=== PATIENT | female | born 1945 | race Caucasian/White ===

== ENCOUNTER 2020-07-17 14:20 | Outpatient (REF) | payer MEDICARE, SELFPAY ==
--- NOTE | 2020-07-17 | MM_ITS ---
EXAMINATION: MM SCREENING DIGITAL BREAST TOMOSYNTHESIS, BILATERAL CLINICAL INFORMATION: Screening. Asymptomatic. The lifetime risk of breast cancer based on the Tyrer-Cuzick Model is 3%. COMPARISON: Mammography: 07/09/2019, 05/15/2018, 03/17/2017, 03/15/2016 TECHNIQUE: Digital breast tomosynthesis is performed in both the craniocaudal and mediolateral oblique views along with computer-aided detection (CAD). Synthesized 2D images are generated from the tomosynthesis. FINDINGS: There are scattered areas of fibroglandular density (ACR BI-RADS breast composition Category b). Breast tissue composition borders on heterogeneously dense in the anterior breasts. Again, there is fine fibronodular parenchymal pattern similar to prior exams. There is no developing density or interval mass or architectural abnormality. There is there are no abnormal calcifications. The axilla and skin contours are unremarkable. IMPRESSION: No significant changes from prior studies. ASSESSMENT: BI-RADS 2: Benign RECOMMENDATION: Routine annual mammography screening. This patient's information was entered into a reminder system with a target due date for their next mammogram.
== END 2020-07-17 14:21 | disposition home or self-care (01) ==
LOC: HO.MAMMO 14:20
PROVIDERS: Visit Provider Internal Medicine
DX: Z12.31 Encounter for screening mammogram for malignant neoplasm of breast (principal)
CPT/HCPCS: 77063; 77067; 78014

== ENCOUNTER 2020-07-19 10:18 | Outpatient (REF) | payer MEDICARE, SELFPAY ==
[2020-07-19 12:02] LABS: Alanine Aminotransferase 25 U/L (0-31); Albumin Level 4.4 g/dL (3.5-5.0); Alkaline Phosphatase 88 U/L (39-117); Anion Gap 13 (12-20); Aspartate Amino Transferase 26 U/L (5-31); Bilirubin Total 1.4 mg/dL (0.0-1.0); Blood Urea Nitrogen 16 mg/dL (9-16); Calcium 9.3 mg/dL (8.4-10.2); Carbon Dioxide 27 mmol/L (22-29); Chloride 103 mmol/L (96-108); Estimated Glomerular Filt Rate > 60; Glucose Fasting 117 mg/dL (60-99); Sodium 139 mmol/L (135-145); Total Protein 7.3 g/dL (6.5-8.0)
[2020-07-19 12:24] LABS: Estimated Average Glucose 146 mg/dL; Hemoglobin A1C 161.9097 umol/L; Hemoglobin A1c % 6.7 %
[2020-07-19 12:34] LABS: Creatinine Urine 195.12 mg/dL
== END 2020-07-19 10:19 | disposition home or self-care (01) ==
LOC: HO.LAB 10:18
PROVIDERS: PCP Internal Medicine; Visit Provider Internal Medicine
DX: E11.9 Type 2 diabetes mellitus without complications (principal); E03.9 Hypothyroidism, unspecified; E78.2 Mixed hyperlipidemia
CPT/HCPCS: 80053; 82043; 83036

== ENCOUNTER 2020-12-11 07:49 | Outpatient (REF) | payer MEDICARE, SELFPAY ==
[2020-12-11 08:07] LABS: COVID-19 Test Negative (Negative)
== END 2020-12-11 07:50 | disposition home or self-care (01) ==
LOC: HO.LAB 07:49
PROVIDERS: Visit Provider Internal Medicine
DX: Z20.822 Contact with and (suspected) exposure to COVID-19 (principal)
CPT/HCPCS: 36415; 87635; C9803

== ENCOUNTER 2021-03-30 09:40 | Outpatient (REF) | payer MEDICARE, SELFPAY ==
[2021-03-30 11:56] LABS: Alanine Aminotransferase 20 U/L (0-31); Albumin Level 4.4 g/dL (3.5-5.0); Alkaline Phosphatase 88 U/L (39-117); Anion Gap 17 (12-20); Aspartate Amino Transferase 23 U/L (5-31); Blood Urea Nitrogen 13 mg/dL (9-16); Calcium 9.1 mg/dL (8.4-10.2); Carbon Dioxide 24 mmol/L (22-29); Chloride 104 mmol/L (96-108); Cholesterol 151 mg/dL; Estimated Glomerular Filt Rate > 60; Glucose Fasting 140 mg/dL (60-99); HDL Cholesterol 73 mg/dL; LDL Cholesterol Calculated 64 mg/dl; Sodium 141 mmol/L (135-145); Total Protein 7.3 g/dL (6.5-8.0); Triglycerides 74 mg/dL
[2021-03-30 11:58] LABS: Creatinine Urine 138.81 mg/dL; Microalbum/Creatinine Ratio Ur 29.5 ug/mg cr
[2021-03-30 12:01] LABS: Estimated Average Glucose 160 mg/dL; Hemoglobin A1c % 7.2 %
[2021-03-30 12:04] LABS: Thyroid Stimulating Hormone 1.67 uIU/mL (0.32-4.0)
== END 2021-03-30 09:41 | disposition home or self-care (01) ==
LOC: HO.HMGCLDS 09:40
PROVIDERS: PCP Internal Medicine; Visit Provider Internal Medicine
DX: E03.9 Hypothyroidism, unspecified (principal); E11.9 Type 2 diabetes mellitus without complications; E78.5 Hyperlipidemia, unspecified; M85.80 Other specified disorders of bone density and structure, unspecified site
CPT/HCPCS: 36415; 80053; 80061; 82043; 83036; 84443

== ENCOUNTER 2021-07-06 10:54 | Outpatient (REF) | payer MEDICARE, SELFPAY ==
[2021-07-06 14:11] LABS: Estimated Average Glucose 140 mg/dL; Hemoglobin A1c % 6.5 %
[2021-07-06 14:25] LABS: Alanine Aminotransferase 13 U/L (0-31); Albumin Level 4.5 g/dL (3.5-5.0); Alkaline Phosphatase 89 U/L (39-117); Anion Gap 14 (12-20); Aspartate Amino Transferase 19 U/L (5-31); Bilirubin Total 0.9 mg/dL (0.0-1.0); Blood Urea Nitrogen 13 mg/dL (9-16); Calcium 9.4 mg/dL (8.4-10.2); Carbon Dioxide 26 mmol/L (22-29); Chloride 104 mmol/L (96-108); Estimated Glomerular Filt Rate > 60; Glucose Fasting 127 mg/dL (60-99); Potassium 4.3 mmol/L (3.3-5.1); Sodium 140 mmol/L (135-145); Total Protein 7.6 g/dL (6.5-8.0)
== END 2021-07-06 10:55 | disposition home or self-care (01) ==
LOC: HO.HMGCLDS 10:54
PROVIDERS: PCP Internal Medicine; Visit Provider Internal Medicine
DX: E11.9 Type 2 diabetes mellitus without complications (principal); E78.5 Hyperlipidemia, unspecified
CPT/HCPCS: 36415; 80053; 83036

== ENCOUNTER 2021-09-13 19:37 | Emergency (ER) | payer MEDICARE, SELFPAY ==
--- NOTE | ~2021-09-13 | XR_ITS ---
EXAMINATION: XR CHEST CLINICAL INFORMATION: Covid, cough. COMPARISON: No similar priors. TECHNIQUE: PA view of the chest was obtained. FINDINGS: No significant abnormality is noted involving the heart, lungs, mediastinum, bony thorax or soft tissues. XR/XR chest 1V IMPRESSION: Unremarkable examination.
[2021-09-13 19:46] VITALS: BP 127/57; PULSE 77; RESP 18; TEMP 37.1; O2SAT 98; BMI 22.4
[2021-09-13 20:15] LABS: COVID-19 Test Positive (Negative); IDNOW Serial# 9DD0AD1C
--- NOTE | 2021-09-13 21:48 | ED_ITS ---
HPI - General Adult General Chief complaint: Upper Respiratory Symptoms Stated complaint: cough home test positive for covid Time Seen by Provider: 09/13/21 21:04 Source: patient Mode of arrival: ambulatory Limitations: no limitations History of Present Illness HPI narrative: Patient comes to emergency room complaining of cough for 5 days. Initially, she thought that she had influenza test/cold as well as her . Patient denies fever, no chills, complaining cough but no other symptoms. Denies chest pain, no shortness of breath. Related Data Home Medications Medication Instructions Recorded Confirmed blood-glucose meter #1 ea 08/01/20 07/11/21 Previous Rx's Medication Instructions Recorded blood sugar diagnostic #100 ea 11/23/20 lancets 33 gauge (BD Ultra Fine #100 ea 12/29/20 Lancets) metformin 500 mg tablet 500 mg PO DAILY #90 tab 04/03/21 levothyroxine 100 mcg tablet 100 mcg PO DAILY #90 tab 06/11/21 atorvastatin 20 mg tablet 20 mg PO DAILY 90 Days #90 tab 07/11/21 Allergies Allergy/AdvReac Type Severity Reaction Status Date / Time No Known Allergies Allergy Verified 07/11/21 08:56 Review of Systems Review of Systems: Constitutional : No Weight loss, No Fever, No Chills, No Night Sweats, No Fatigue, No Malaise ENT/Mouth : No Hearing loss, No Ear Pain, No Nasal Congestion, No Sinus Pain, No Hoarseness, No sore throat, No Rhinorrhea, No Swallowing Difficulty Eyes: No Eye Pain, No Swelling, No Redness, No Foreign Body, No Discharge, No Vision Changes Cardiovascular : No Chest Pain, No SOB, No Dyspnea on Exertion, No Orthopnea, No Edema, No Palpitations Respiratory : Complaining of Cough, No Sputum, No Wheezing, No Smoke Exposure, No Dyspnea Gastrointestinal : No Nausea, No Vomiting, No Diarrhea, No Constipation, No abdominal Pain, No Hematochezia, No Melena Genitourinary : no irregular bleeding, No Dysuria, No Urinary Frequency, No Hematuria, No Urinary Incontinence, No Urgency, No Flank Pain, No Urinary Flow Changes, No Hesitancy Musculoskeletal : No joint pain, No Myalgias, No Joint Swelling Skin : No Skin Lesions, No rash Neuro : No Weakness, No Numbness, No Paresthesias, No Loss of Consciousness, No Dizziness, No Headache Psych : No Anxiety/Panic, No Depression, No SI/HI/AH/VH, No Social Issues, Heme/Lymph: No Bruising, No Bleeding,No Lymphadenopathy Endocrine : No Polyuria, No Polydipsia, No Temperature Intolerance [facility] Past Medical History Medical History Diabetes Diabetic eye exam FH: celiac disease Hyperlipidemia Hypothyroidism Mammogram normal Osteopenia Surgical History History of colonoscopy History of plastic surgery Family History Family History Father Pancreatic cancer Mother Celiac disease COPD (chronic obstructive pulmonary disease) Brother No problems noted. Brother Celiac disease Social History Social History Housing: House Patient Tobacco Use Status: Never used Tobacco e-Cigarette/Vaping Use: Never Used Second Hand Smoke Exposure: No Advance Directives: No Advance Directives Information Provided: Yes service: No Current occupational status: retired Physical Exam Vital Signs: Vital Signs: Last Vital Signs Temp 98.8 F 09/13/21 19:46 Pulse 77 09/13/21 19:46 Resp 18 09/13/21 19:46 BP 127/57 L 09/13/21 19:46 Pulse Ox 98 09/13/21 19:46 BMI result Body Mass Index 22.4 Const: Other: Appearance: Alert. Oriented X3. No acute distress. Well- appearing Eyes: Pupils equal, round and reactive to light. ENT: Pharynx normal. Neck: Normal inspection. Neck supple. No lymph nodes noted. No crepitus CVS: Normal heart rate and rhythm. Pulses normal. Normal S1 and S2 Respiratory: No respiratory distress. Breath sounds normal. No Wheezing. No rales Abdomen: Soft and nontender. No rigidity. No distention. Skin: Skin warm and dry. Normal skin color. Normal skin turgor. Extremities: No lower extremity edema. No lower extremity edema. No Lacerations. No Rash Neuro: Oriented X 3. No motor deficit. No sensory deficit. Moving all extermities. No slurred speech. Course Course Course Narrative: Patient tested positive for COVID-19. Given the patient's age and medical history, patient will likely benefit from COVID-19 monoclonal antibody infusion. Patient agreed to be referred for infusion treatment in [place]. Medical Decision Making Lab Data Labs: Lab Results 09/13/21 Range/Units 20:00 COVID-19 (DENIS) Positive A (Negative) COVID-19 Clin Com See Note Imaging Data Chest x-ray: Radiologist's impression: FINDINGS: No significant abnormality is noted involving the heart, lungs, mediastinum, bony thorax or soft tissues. XR/XR chest 1V IMPRESSION: Unremarkable examination. Discharge Plan Discharge Clinical Impression: COVID-19 Patient Disposition: Home, Self-Care Instructions: COVID-19 (Coronavirus Disease 2019) (ED) Additional Instructions: He has been referred to the COVID-19 monoclonal antibody infusion center in [place]. Please follow-up with your primary care physician tomorrow. If you have any worsening or new symptoms, please return to the emergency room or call 911 Prescriptions: No Action (DME) blood sugar diagnostic Strip See Rx Instructions ea Not Applicable DAILY Qty: 100 RF: 1 (DME) lancets [BD Ultra Fine Lancets] 33 gauge misc See Rx Instructions .ROUTE .MEDSUPPLY Qty: 100 RF: 0 levothyroxine 100 mcg tablet 100 mcg PO DAILY Qty: 90 RF: 3 (DME) blood-glucose meter Kit See Rx Instructions ea .ROUTE DAILY Qty: 1 RF: 0 metformin 500 mg tablet 500 mg PO DAILY Qty: 90 RF: 3 atorvastatin 20 mg tablet 20 mg PO DAILY 90 Days Qty: 90 RF: 3
== END 2021-09-13 22:20 | disposition home or self-care (01) ==
PROVIDERS: Emergency Provider Emergency Medicine
DX: U07.1 COVID-19 (principal)
CPT/HCPCS: 36415; 71045; 87635; 99283; 99284

== ENCOUNTER 2022-01-16 09:18 | Outpatient (REF) | payer MEDICARE, SELFPAY ==
--- NOTE | ~2022-01-16 | MM_ITS ---
EXAMINATION: MM SCREENING DIGITAL BREAST TOMOSYNTHESIS, BILATERAL CLINICAL INFORMATION: Screening. Asymptomatic. The lifetime risk of breast cancer based on the Tyrer-Cuzick Model is under 2%. COMPARISON: Mammography: 07/17/2020, 07/09/2019, 05/15/2018 TECHNIQUE: Digital breast tomosynthesis is performed in both the craniocaudal and mediolateral oblique views along with computer-aided detection (CAD). Synthesized 2D images are generated from the tomosynthesis. FINDINGS: There are scattered areas of fibroglandular density (ACR BI-RADS breast composition Category b). There are no significant masses, abnormal calcifications, or other abnormalities. Fibronodular parenchymal pattern is similar to prior studies. There is no developing density or architectural abnormality. Left axillary node stable. No significant changes. MM/MM tomosynthesis screening BI IMPRESSION: No significant changes from prior studies. ASSESSMENT: BI-RADS 2: Benign RECOMMENDATION: Routine annual mammography screening. This patient's information was entered into a reminder system with a target due date for their next mammogram.
== END 2022-01-16 09:19 | disposition home or self-care (01) ==
LOC: HO.MAMMO 09:18
PROVIDERS: PCP Internal Medicine; Visit Provider Internal Medicine
DX: Z12.31 Encounter for screening mammogram for malignant neoplasm of breast (principal)
CPT/HCPCS: 77063; 77067

== ENCOUNTER 2022-01-25 09:13 | Outpatient (REF) | payer MEDICARE, SELFPAY ==
[2022-01-25 10:25] LABS: Estimated Average Glucose 148 mg/dL; Hemoglobin A1c % 6.8 %
[2022-01-25 10:47] LABS: Alanine Aminotransferase 14 U/L (0-31); Albumin Level 4.1 g/dL (3.5-5.0); Alkaline Phosphatase 82 U/L (39-117); Anion Gap 13 (12-20); Aspartate Amino Transferase 21 U/L (5-31); Blood Urea Nitrogen 11 mg/dL (9-16); Calcium 9.5 mg/dL (8.4-10.2); Carbon Dioxide 28 mmol/L (22-29); Chloride 101 mmol/L (96-108); Cholesterol 163 mg/dL; Estimated Glomerular Filt Rate > 60; Glucose Fasting 132 mg/dL (60-99); HDL Cholesterol 68 mg/dL; LDL Cholesterol Calculated 80 mg/dl; Potassium 4.2 mmol/L (3.3-5.1); Sodium 138 mmol/L (135-145); Total Protein 7.2 g/dL (6.5-8.0); Triglycerides 75 mg/dL
[2022-01-25 11:09] LABS: TSH reflex Free T4 2.69 uIU/mL (0.32-4.0)
== END 2022-01-25 09:14 | disposition home or self-care (01) ==
LOC: HO.LAB 09:13
PROVIDERS: PCP Internal Medicine; Visit Provider Internal Medicine
DX: E03.9 Hypothyroidism, unspecified (principal); E78.5 Hyperlipidemia, unspecified; E11.9 Type 2 diabetes mellitus without complications
CPT/HCPCS: 36415; 80053; 80061; 83036; 84443

== ENCOUNTER 2022-07-22 09:33 | Outpatient (REF) | payer MEDICARE, SELFPAY ==
[2022-07-22 10:29] LABS: Alanine Aminotransferase 13 U/L (0-31); Albumin Level 4.5 g/dL (3.5-5.0); Alkaline Phosphatase 88 U/L (39-117); Anion Gap 16 (12-20); Aspartate Amino Transferase 21 U/L (5-31); Bilirubin Total 1.3 mg/dL (0.0-1.0); Blood Urea Nitrogen 12 mg/dL (9-16); Calcium 9.6 mg/dL (8.4-10.2); Carbon Dioxide 27 mmol/L (22-29); Chloride 103 mmol/L (96-108); Cholesterol 147 mg/dL; Estimated Glomerular Filt Rate > 60; Glucose Fasting 133 mg/dL (60-99); HDL Cholesterol 71 mg/dL; LDL Cholesterol Calculated 65 mg/dl; Potassium 4.3 mmol/L (3.3-5.1); Sodium 142 mmol/L (135-145); Total Protein 7.5 g/dL (6.5-8.0); Triglycerides 59 mg/dL
[2022-07-22 10:31] LABS: Estimated Average Glucose 146 mg/dL; Hemoglobin A1c % 6.7 %
[2022-07-22 11:00] LABS: Creatinine Urine 256.74 mg/dL; Microalbum/Creatinine Ratio Ur 9.7 ug/mg cr
== END 2022-07-22 09:34 | disposition home or self-care (01) ==
LOC: HO.LAB 09:33
PROVIDERS: PCP Internal Medicine; Visit Provider Internal Medicine
DX: E11.9 Type 2 diabetes mellitus without complications (principal); E78.5 Hyperlipidemia, unspecified
CPT/HCPCS: 36415; 80053; 80061; 82043; 83036

== ENCOUNTER 2023-01-17 09:38 | Outpatient (REF) | payer MEDICARE, SELFPAY ==
--- NOTE | ~2023-01-17 | MM_ITS ---
EXAMINATION: MM SCREENING DIGITAL BREAST TOMOSYNTHESIS, BILATERAL CLINICAL INFORMATION: Screening. Asymptomatic. The lifetime risk of breast cancer based on the Tyrer-Cuzick Model is 2%. COMPARISON: Mammography 01/16/2022, 07/17/2020, 07/09/2019; targeted left axillary 07/13/2019. TECHNIQUE: Digital breast tomosynthesis is performed in both the craniocaudal and mediolateral oblique views along with computer-aided detection (CAD). Synthesized 2D images are generated from the tomosynthesis. FINDINGS: There are scattered areas of fibroglandular density (ACR BI-RADS breast composition Category b). There is fine fibronodular parenchymal pattern similar to prior exams. No developing density or architectural abnormality. No abnormal calcifications. No significant mass. The skin contours are smooth. There is chronic mildly prominent left axillary node, similar to prior exams. MM/MM tomosynthesis screening BI IMPRESSION: No significant changes from prior studies. ASSESSMENT: BI-RADS 2: Benign RECOMMENDATION: Routine annual mammography screening. This patient's information was entered into a reminder system with a target due date for their next mammogram.
--- NOTE | ~2023-01-17 | MM_ITS ---
EXAMINATION: BONE DENSITOMETRY CLINICAL INDICATION: Asymptomatic menopausal state. COMPARISON: Previous BD dated 07/09/2019 and baseline BD dated 10/26/2007. TECHNIQUE: Using a Continuent DXA System (software version: 13.1) manufactured by [employer], dual-energy x-ray absorptiometry was performed of the lumbar spine and left hip. The images are of good technical quality. Summary results are attached. FINDINGS: AP SPINE L1-L4: Current: BMD 0.978 g/cm2, Z-score 0.5, T-score -1.7, osteopenia, 3.9% decrease from previous, 2.8% increase from baseline (<5% change is not significant). Prior: BMD 1.018 g/cm2. Baseline: BMD 0.951 g/cm2. LEFT FEMUR, NECK: Current: BMD 0.735 g/cm2, Z-score 0.2, T-score -2.2, osteopenia. Prior: BMD 0.742 g/cm2. Baseline: BMD 0.841 g/cm2. LEFT FEMUR, TOTAL: Current: BMD 0.832 g/cm2, Z-score 0.9, T-score -1.4, osteopenia, 10.5% increase from previous, 6.7% decrease from baseline (<5% change is not significant). Prior: BMD 0.753 g/cm2. Baseline: BMD 0.892 g/cm2. IDENTIFIED RISK FACTORS: Menopause, secondary osteoporosis. HISTORY OF FRACTURE: None listed. MEDICATIONS: Vitamin D. MM/XR DEXA axial skeleton IMPRESSION: 1. DIAGNOSIS: Osteopenia based on the lowest T-score value of -2.2 in the femoral neck applying World Health Organization criteria. 2. 10-YEAR FRACTURE RISK PREDICTION, FRAX: Major osteoporotic fracture (clinical spine, forearm, hip or shoulder) 15.8%. Hip fracture 5.1%. 3. Treatment Recommendations: NOF guidelines recommend consideration for treatment in postmenopausal women and men age 50 and older presenting with the following: -A hip or vertebral (clinical or morphometric) fracture. -T-score less than or equal to -2.5 at the femoral neck or spine after appropriate evaluation to exclude secondary causes. -Low bone mass at the hip or spine and a 10-year fracture probability by FRAX of greater than or equal to 3% for hip fracture or greater than or equal to 20% for major osteoporotic fracture based on the [place] adapted WHO algorithm. 4. Other Recommendations: All treatment decisions require clinical judgment and consideration of individual patient factors, including patient preferences, comorbidities, previous drug use, risk factors not captured in the FRAX model (e.g. frailty, falls, vitamin D deficiency, increased bone turnover, interval significant decline in bone density) and possible under or overestimation of fracture risk by FRAX. Additional medical evaluation for secondary cause of low bone mineral density may be appropriate. FUTURE SCAN RECOMMENDATION: People with diagnosed cases of osteoporosis or at high risk for fracture should have regular bone mineral density tests. For patients eligible for Medicare, routine testing is allowed once every 2 years. The testing frequency can be increased to one year for patients who have rapidly progressing disease, those who are receiving or discontinuing medical therapy to restore bone mass, or have additional risk factors.
[2023-01-17 10:41] LABS: MANUAL DIFF FLAG NO
[2023-01-17 11:08] LABS: Basophils Absolute Auto 0.1 X10*3/uL (0.0-0.2); Basophils Percent Auto 0.7 % (0-2); Eosinophils Absolute Auto 0.2 X10*3/uL (0.0-0.4); Eosinophils Percent Auto 2.8 % (0-4); Hemoglobin 12.7 g/dl (12.0-16.0); Imm Gran Abs Auto 0.03 X10*3/uL (0.00-0.03); Imm Gran Pct Auto 0.4 % (0.0-0.4); Lymphocytes Absolute Auto 1.9 X10*3/uL (1.2-4.9); Lymphocytes Percent Auto 25.9 % (20-40); Mean Corpuscular HGB Conc 32.6 g/dl (31.0-35.0); Mean Corpuscular Hemoglobin 29.7 pg (27.0-33.0); Mean Corpuscular Volume 91.1 fL (80.0-98.0); Mean Platelet Volume 9.5 fL (9.4-12.3); Monocytes Absolute Auto 0.6 X10*3/uL (0.1-1.2); Monocytes Percent Auto 8.5 % (2-11); Neutrophils Absolute Auto 4.4 x10*3/uL (2.0-8.3); Neutrophils Percent Auto 61.7 % (45-73); Platelet Count 326 X10*3/uL (160-400); Red Blood Count 4.28 X10*6/uL (4.20-5.50); Red Cell Distribution Width 13.2 % (11.0-16.0); White Blood Count 7.2 X10*3/uL (4.8-10.8)
[2023-01-17 11:15] LABS: Estimated Average Glucose 151 mg/dL; Hemoglobin A1c % 6.9 %
[2023-01-17 11:41] LABS: Alanine Aminotransferase 11 U/L (0-31); Albumin Level 4.4 g/dL (3.5-5.0); Alkaline Phosphatase 120 U/L (39-117); Anion Gap 14 (12-20); Aspartate Amino Transferase 18 U/L (5-31); Bilirubin Total 1.3 mg/dL (0.0-1.0); Blood Urea Nitrogen 14 mg/dL (9-16); Calcium 9.5 mg/dL (8.4-10.2); Carbon Dioxide 28 mmol/L (22-29); Chloride 103 mmol/L (96-108); Cholesterol 171 mg/dL; Estimated Glomerular Filt Rate > 60; Glucose Fasting 142 mg/dL (60-99); HDL Cholesterol 65 mg/dL; Iron 77 mcg/dL (30-160); LDL Cholesterol Calculated 90 mg/dl; Percent Iron Saturation 30 % (15-50); Potassium 4.4 mmol/L (3.3-5.1); Sodium 141 mmol/L (135-145); Total Iron Binding Capacity 257 mcg/dL (228-428); Total Protein 7.6 g/dL (6.5-8.0); Triglycerides 80 mg/dL; Unsaturated Iron Binding 180 ug/dL
[2023-01-17 12:09] LABS: Folate 12.6 ng/mL (> or = 4.0); TSH reflex Free T4 4.42 uIU/mL (0.32-4.0); Vitamin B12 400 pg/mL (200-900); Vitamin D 25-OH Total 50.7 ng/mL (>30)
[2023-01-17 13:12] LABS: Free T4 (Free Thyroxine) 1.06 ng/dL (0.71-1.85)
== END 2023-01-17 09:39 | disposition home or self-care (01) ==
LOC: HO.MAMMO 09:38
PROVIDERS: PCP Internal Medicine; Visit Provider Internal Medicine
DX: Z12.31 Encounter for screening mammogram for malignant neoplasm of breast (principal); Z13.820 Encounter for screening for osteoporosis; Z78.0 Asymptomatic menopausal state; M85.80 Other specified disorders of bone density and structure, unspecified site; E03.9 Hypothyroidism, unspecified; E11.9 Type 2 diabetes mellitus without complications; E55.9 Vitamin D deficiency, unspecified; E78.5 Hyperlipidemia, unspecified
CPT/HCPCS: 36415; 77063; 77067; 77080; 80053; 80061; 82306; 82607; 82746; 83036; 83540; 84439; 84443; 85025

== ENCOUNTER 2023-06-03 08:43 | Outpatient (REF) | payer MEDICARE, SELFPAY ==
[2023-06-03 09:14] LABS: MANUAL DIFF FLAG NO
[2023-06-03 10:08] LABS: Basophils Absolute Auto 0.1 X10*3/uL (0.0-0.2); Basophils Percent Auto 0.8 % (0-2); Eosinophils Absolute Auto 0.2 X10*3/uL (0.0-0.4); Eosinophils Percent Auto 3.8 % (0-4); Hematocrit 38.2 % (37.0-47.0); Hemoglobin 12.1 g/dl (12.0-16.0); Imm Gran Abs Auto 0.01 X10*3/uL (0.00-0.03); Imm Gran Pct Auto 0.2 % (0.0-0.4); Lymphocytes Absolute Auto 1.6 X10*3/uL (1.2-4.9); Lymphocytes Percent Auto 25.3 % (20-40); Mean Corpuscular HGB Conc 31.7 g/dl (31.0-35.0); Mean Corpuscular Hemoglobin 28.5 pg (27.0-33.0); Mean Corpuscular Volume 89.9 fL (80.0-98.0); Mean Platelet Volume 9.7 fL (9.4-12.3); Monocytes Absolute Auto 0.5 X10*3/uL (0.1-1.2); Monocytes Percent Auto 8.6 % (2-11); Neutrophils Absolute Auto 3.8 x10*3/uL (2.0-8.3); Neutrophils Percent Auto 61.3 % (45-73); Platelet Count 301 X10*3/uL (160-400); Red Blood Count 4.25 X10*6/uL (4.20-5.50); Red Cell Distribution Width 13.6 % (11.0-16.0); White Blood Count 6.1 X10*3/uL (4.8-10.8)
[2023-06-03 10:15] LABS: Estimated Average Glucose 146 mg/dL; Hemoglobin A1c % 6.7 % (<6.0)
[2023-06-03 10:45] LABS: Alanine Aminotransferase 11 U/L (0-31); Albumin Level 4.2 g/dL (3.5-5.0); Alkaline Phosphatase 88 U/L (39-117); Anion Gap 12 (12-20); Aspartate Amino Transferase 16 U/L (5-31); Bilirubin Total 0.9 mg/dL (0.0-1.0); Blood Urea Nitrogen 15 mg/dL (9-16); Calcium 9.6 mg/dL (8.4-10.2); Carbon Dioxide 27 mmol/L (22-29); Chloride 104 mmol/L (96-108); Estimated Glomerular Filt Rate > 60; Glucose Fasting 144 mg/dL (60-99); Potassium 4.2 mmol/L (3.3-5.1); Sodium 139 mmol/L (135-145); Total Protein 7.9 g/dL (6.5-8.0)
[2023-06-03 11:00] LABS: TSH reflex Free T4 2.62 uIU/mL (0.32-4.0)
== END 2023-06-03 08:44 | disposition home or self-care (01) ==
LOC: HO.LAB 08:43
PROVIDERS: PCP Internal Medicine; Visit Provider Internal Medicine
DX: E03.9 Hypothyroidism, unspecified (principal); E11.9 Type 2 diabetes mellitus without complications; E78.5 Hyperlipidemia, unspecified
CPT/HCPCS: 36415; 80053; 83036; 84443; 85025

== ENCOUNTER 2023-06-06 09:40 | Outpatient (AMB) | payer MEDICARE, SELFPAY ==
[2023-06-06 09:51] VITALS: BP 120/64; PULSE 77; O2SAT 98; BMI 19.6
--- NOTE | 2023-06-06 09:51 | A.OFFVIS_ITS ---
Intake Vital Signs 06/06/23 09:51 Height 5 ft 5 in Weight 118 lb BMI 19.6 BP 120/64 Blood Pressure Location Lt brachial Position Sitting Pulse 77 Pulse Source Pulse Oximeter Pulse Oximetry (%) 98 Oxygen Delivery Method Room Air Intake Visit Reasons: LAWANDA [id number] 05/13/2012 Intake Note: Pt is here today for AWV. Allergies No Known Allergies Allergy (Verified 06/06/23 09:53) Medication List - Last Reconciled 06/06/23 by Claudia Earl MD atorvastatin 20 mg PO DAILY 90 days blood sugar diagnostic use 1 strip once a day to test blood sugar blood-glucose meter As directed lancets (BD Ultra Fine Lancets) QD levothyroxine 100 mcg PO DAILY metformin 500 mg PO DAILY HPI HPI Comments History of Present Illness Details Patient is for annualInitiated the conversation about Advanced Directives. Advanced Directives help? patients prepare for current and future decisions about their medical treatment? and place of care. Discussed with patient that it is a process where a patients? current condition and prognosis are reviewed, their wishes for information? regarding their illness are elicited, and likely medical dilemmas are presented? and options discussed. The form can be amended as needed, reviewed yearly and? make changes as needed IPPE/AWV ? year old presents? for her ? Annual? Wellness Visit, initial visit.? Medical / Social History Reviewed? Past Medical History ?Yes? . ? [place]? of Care / Care Team list updated ?Yes . ? Surgical/Hospitalization? History ?Yes . ? Current Medications? (including OTC and supplements) ?Yes . ? Family History ?Yes? . ? Tobacco? Control form ?Yes . ? AUDIT-C (Alcohol use) form? ?Yes . ? Illicit drug use in Social? History ?Yes . ? Current diagnosis of? depression? ?No ? Appropriate PHQ2/PHQ9? completed ?Yes . ? Data entered by ?[facility] and reviewed by provider ? Fall Risk ? Fall? History? Have you had any falls with? injury in the past year? ?No . ? Have you had two or more? falls in the past year? ?No . ? Fall Risk Assessment: ?No? falls in the past year . ? HRA filled out by? the patient, reviewed by Provider and scanned. ? IPPE/AWV ? Balance? Romberg? ?Yes . ? Tandem? walk ?Yes . ? Walk and? Turn ?Yes . ? Rise from? sit to stand ?Yes . ?Vision? Corrective? lens ?Yes ? Vision? screen ? Up-to-date, has an appointment [] for vision? screening and glaucoma screening ?Hearing? Whisper? test ?pass .? Initiated the conversation about Advanced Directives. Advanced Directives help? patients prepare for current and future decisions about their medical treatment? and place of care. Discussed with patient that it is a process where a patients? current condition and prognosis are reviewed, their wishes for information? regarding their illness are elicited, and likely medical dilemmas are presented? and options discussed. The form can be amended as needed, reviewed yearly and? make changes as needed Written? Plan?Completed. See Patient? Documents. visit [facility] Medical History (Updated 06/06/23 @ 10:14 by Claudia Earl MD) Diabetes Diabetic eye exam FH: celiac disease Hyperlipidemia Hypothyroidism Mammogram normal Osteopenia Skin growth Surgical History History of colonoscopy History of plastic surgery Family History Father Pancreatic cancer Mother Celiac disease COPD (chronic obstructive pulmonary disease) Brother No problems noted. Brother Celiac disease Social History Housing: House Patient Tobacco Use Status: Former Tobacco user e-Cigarette/Vaping Use: Never Used Second Hand Smoke Exposure: No service: No Current occupational status: retired Cognitive needs: No Hearing needs: No Vision needs: No Questionnaire Medicare Wellness Checkup What is your age?: 80 or older What gender do you identify with?: female During the past 4 weeks, how much have you been bothered by emotional problems such as feeling anxious, depressed, irritable, sad or downhearted, and blue?: not at all During the past 4 weeks, has your physical & emotional health limited your social activities with family, friends, neighbors, or groups?: not at all During the past 4 weeks, how much bodily pain have you generally had?: no pain During the past 4 weeks, was someone available to help you if you needed & wanted help?: yes, as much as I wanted During the past 4 weeks, what was the hardest physical activity you could do for at least 2 minutes?: heavy Can you get to places out of walking distance without help? (For eg., can you travel alone on buses, taxis or drive your car?): Yes Can you go shopping for groceries or clothes without someone's help?: Yes Can you prepare your own meals?: Yes Can you do your housework without help?: Yes Because of any health problems, do you need the help of another person with your personal care needs such as eating, bathing, dressing or getting around the house?: No Can you handle your own money without help?: Yes During the past 4 weeks, how would you rate your health in general?: very good During the past 4 weeks how have things been going for you?: very well; could hardly better Are you having difficulties driving your car?: no Do you always fasten your seat belt when you are in a car?: yes, usually During past 4 weeks, have you been bothered by the following: never: Falling or dizzy when standing up, Sexual problems?, Trouble eating well?, Teeth or denture problems?, Problems using the telephone? and Tiredness or fatigue? Have you fallen 2 or more times in the past year?: No Are you afraid of falling?: No Are you a smoker?: no During the past 4 weeks, how many drinks of wine, beer, or other alcoholic beverages did you have?: 2-5 drinks per week Do you exercise for about 20 minutes 3 or more times a week?: yes, most of the time Have you been given information to help with the following?: no: Hazards in your house that might hurt you? and no: Keeping track of your medications? How often do you have trouble taking medicines the way you have been told to take them?: I always take medicine as prescribed How confident are you that you can control & manage most of your health problems?: very confident What is your race?: White Mini Mental State Exam (MMSE) Orientation What is the (year) (season) (date) (day) (month)?: year, season, date, day and month Where are we (state) (county) (town or city) (hospital) (floor)?: state, county, town or city, hospital/clinic and floor Registration Name of 3 unrelated objects clearly and slowly, then ask patient to repeat all 3 of them. (1st repeat determines score. Make sure they can repeat all three): object 1, object 2 and object 3 Recall Ask patient to repeat the 3 items from question #3.: object 1, object 2 and object 3 Language Show patient a wristwatch & ask what it is. Repeat for pencil.: watch and pencil Ask the patient to repeat the phrase 'No ifs, ands, or buts' after you.: correct Ask the patient to 'take a piece of paper with their right hand' 'fold paper in half' 'place paper on floor': take paper in right hand, fold paper in half and place paper on floor Print the sentence 'CLOSE YOUR EYES' on a piece. If patient actually closes eyes then score.: followed written direction Give patient a blank piece of paper & ask to write a sentence. Score if it contains a noun & verb.: sentence contains subject and verb Ask patient to copy figure of intersecting pentagons exactly. Score if all 10 angles & 2 intersects are included.: all 10 angles present & 2 are intersected Score Score: 25 Activity of Daily Living Bathing - sponge bath, tub bath or shower: receives no assistance (gets in/out by self, if usual bathing means Dressing - getting clothes from closets & drawers, including inner/outer garments & fasteners.: gets clothes & gets completely dressed without help Toileting - going to the 'toilet room' for urine/bowel elimination & cleaning self/arranging clothes: goes to toilet room, cleans self, arranges clothes without help Transfer: moves in & out of bed and chair without help (may use support object) Continence: controls urination/bowel movements completely by self Feeding: feeds self without help Total Score: 0 Information obtained from: patient Using telephone: independent Traveling: independent Shopping: independent Preparing meals: independent Housework: independent Taking medicine: independent Managing money: independent PHQ-9 Over the last 2 weeks, how often have you been bothered by any of the following problems? 1. Little interest or pleasure in doing things: not at all 2. Feeling down, depressed, or hopeless: not at all 3. Trouble falling or staying asleep, or sleeping too much: not at all 4. Feeling tired or having little energy: not at all 5. Poor appetite or overeating: not at all 6. Feeling bad about yourself - or that you are a failure or have let yourself or your family down: not at all 7. Trouble concentrating on things, such as reading the newspaper or watching television: not at all 8. Moving or speaking so slowly that other people could have noticed. Or the opposite - being so fidgety or restless that you have been moving around a lot more than usual: not at all 9. Thoughts that you would be better off or of hurting yourself in some way: not at all Total score: 0 Depression Screening Interpretation: Negative Source: Developed by DrsCatarino Tan, lBanca Coleman, David Coleamn and colleagues, with an educational tray from [employer]. Review of Systems Const All systems reviewed & are unremarkable except as noted in HPI and below Reports no additional complaints Eyes Reports no additional complaints ENT Reports no additional complaints Card Reports no additional complaints Resp Reports no additional complaints GI Reports no additional complaints Physical Exam Vital Signs: Last Vital Signs Pulse 77 06/06/23 09:51 BP 120/64 06/06/23 09:51 Pulse Ox 98 06/06/23 09:51 Oxygen Delivery Method Room Air 06/06/23 09:51 BMI result Body Mass Index 19.6 Const General: no acute distress HEENT Head: Yes normal to inspection Eyes General: appearance normal, both eyes and all related structures Neck Neck: Yes no lymphadenopathy and Yes supple Resp Effort & Inspection: normal respiratory effort Auscultation: clear to auscultation bilaterally Cardio Rhythm: regular rhythm Heart sounds: S1 normal heart sound present and S2 normal heart sound present GI Inspection: Yes normal to inspection Palpation (GI): Soft to palpation Percussion: Yes normal to percussion Auscultation: normal bowel sounds Extrem General: Yes no clubbing, cyanosis or edema Assessment & Plan Assessment & Plan (1) Diabetes: Comment: A1C goal less than 7.5 Code(s): E11.9 - Type 2 diabetes mellitus without complications Plan: A1c 6.7, continue ADA diet regular exercise and metformin. Patient will return in 8 months with a fasting labs before. She spends winter in [place] and [facility] (2) Hypothyroidism: Code(s): E03.9 - Hypothyroidism, unspecified Plan: Continue levothyroxine (3) Hyperlipidemia: Code(s): E78.5 - Hyperlipidemia, unspecified Plan: Continue atorvastatin Orders: Orders XR hand wrist RT Today S69.91XA - Unspecified injury of right wrist, hand and finger(s), initial encounter [facility] [place]. Panel Fast 8 Months E03.9 - Hypothyroidism, unspecified, E11.9 - Type 2 diabetes mellitus without complications, E78.5 - Hyperlipidemia, unspecified Hemoglobin A1c 8 Months E03.9 - Hypothyroidism, unspecified, E11.9 - Type 2 diabetes mellitus without complications, E78.5 - Hyperlipidemia, unspecified Lipid Panel 8 Months E03.9 - Hypothyroidism, unspecified, E11.9 - Type 2 diabetes mellitus without complications, E78.5 - Hyperlipidemia, unspecified TSH reflex Free T4 8 Months E03.9 - Hypothyroidism, unspecified, E11.9 - Type 2 diabetes mellitus without complications, E78.5 - Hyperlipidemia, unspecified Microalbumin 24 hr Urine 8 Months E03.9 - Hypothyroidism, unspecified, E11.9 - Type 2 diabetes mellitus without complications, E78.5 - Hyperlipidemia, unspecified Complete Blood Count Auto Diff 8 Months E03.9 - Hypothyroidism, unspecified, E11.9 - Type 2 diabetes mellitus without complications, E78.5 - Hyperlipidemia, unspecified Quality Reporting (2019) Depression/Bipolar (159/160/161/177) PHQ-9: Total score: 0 Coding Level of Care Code Medicare Subsequent (G0439) Diagnoses Diabetes E11.9 Hypothyroidism E03.9 Hyperlipidemia E78.5 CPT Codes Advance Care Planning - Time spent: 1-15 minutes, not on file ([id number]) Advance Care Planning Advance Care Planning discussion: Exists, not on file Date of discussion: 06/06/23 Forms completed: Health Care Proxy Time spent: 1-15 minutes, not on file
== END 2023-06-06 10:24 | disposition home or self-care (01) ==
PROVIDERS: PCP Internal Medicine; Visit Provider Internal Medicine
DX: Z00.00 Encounter for general adult medical examination without abnormal findings (principal); E11.9 Type 2 diabetes mellitus without complications; E03.9 Hypothyroidism, unspecified; E78.5 Hyperlipidemia, unspecified
CPT/HCPCS: 1124F; G0439

== ENCOUNTER 2023-06-06 10:15 | Outpatient (REF) | payer MEDICARE, SELFPAY ==
--- NOTE | ~2023-06-06 | XR_ITS ---
EXAMINATION: XR WRIST, RIGHT XR HAND, RIGHT CLINICAL INFORMATION: Injury COMPARISON: None available. TECHNIQUE: PA, lateral, and oblique views of the right wrist and PA, lateral, and oblique views of the right hand FINDINGS: The bones are osteopenic. There is severe osteoarthritis at the IP joints and first [facility] joint with joint space narrowing and osteophyte formation. There is question of subtle transverse sclerosis in the distal metaphysis of the radius. Appearance is questionable for nondisplaced fracture of uncertain age. If this area corresponds to the area of patient pain, follow-up CT should be considered. There is an old healed fifth metacarpal fracture. Bone alignment is normal. There is periarticular soft tissue calcification or chondrocalcinosis at the IP joint of the thumb. Soft tissues are otherwise unremarkable. XR/XR hand wrist RT IMPRESSION: Osteopenia and arthritis. Question transverse nondisplaced fracture of the distal radial metaphysis, uncertain age. Clinical correlation recommended. This could be further evaluated with bone scan or CT scan if clinically indicated. Old healed fifth metacarpal fracture.
== END 2023-06-06 10:16 | disposition home or self-care (01) ==
LOC: HO.HMGCX 10:15
PROVIDERS: PCP Internal Medicine; Visit Provider Internal Medicine
DX: S69.91XA Unspecified injury of right wrist, hand and finger(s), initial encounter (principal)
CPT/HCPCS: 73110; 73130

== ENCOUNTER 2023-07-04 10:39 | Outpatient (REF) | payer MEDICARE, SELFPAY ==
--- NOTE | ~2023-07-04 | CT_ITS ---
EXAMINATION: CT WRIST WITHOUT CONTRAST, RIGHT CLINICAL INFORMATION: Fracture of unspecified carpal bone. COMPARISON: X-ray of the right hand 06/06/2023. TECHNIQUE: CT scan of the right wrist is performed with reconstruction imaging performed at the acquisition workstation. This CT examination was performed using dose optimization techniques as appropriate, variously including the following: *Automated exposure control *Adjustment of mA and/or kV according to patient size (this includes techniques or standardized protocols for targeted exams where dose is matched to indication/reason for exam; i.e. extremities or head) *Use of iterative reconstruction technique DLP: 102 mGy-cm FINDINGS: There is deformity of the distal radius/radial tuberosity having the appearance of a subacute or chronic intra-articular distal radius fracture. The fracture appears healed or near completely healed. There is some minimal lucency in the subchondral bone at the level of the scaphoid fossa. The fracture likely extends obliquely from this portion of the articular surface to the medial aspect of the radial metaphysis at the base of the radial styloid. There is mild deformity of the dorsal and radial cortex of the distal radius and additional lucency between the scaphoid and lunate fossa likely related to a suspected prior fracture. There is mild arthrosis of the distal radial ulnar joint with small marginal osteophytes and subchondral cystic change. There is advanced arthrosis of the 1st carpometacarpal joint with marginal osteophytes, subchondral cystic change and subchondral irregularity. CT/CT wrist RT wo IV con IMPRESSION: Subacute/chronic healed or near completely healed intra-articular fracture of the distal radius. Advanced osteoarthritis of the 1st carpometacarpal joint. Arthrosis of the distal radioulnar joint.
== END 2023-07-04 10:40 | disposition home or self-care (01) ==
LOC: HO.CT 10:39
PROVIDERS: PCP Internal Medicine; Visit Provider Internal Medicine
DX: S62.101A Fracture of unspecified carpal bone, right wrist, initial encounter for closed fracture (principal)
CPT/HCPCS: 73200

== ENCOUNTER 2024-01-23 10:04 | Outpatient (REF) | payer MEDICARE, SELFPAY | END 2024-01-23 10:05 | disposition home or self-care (01) | LOC: HO.MAMMO 10:04 | PROVIDERS: PCP Internal Medicine; Visit Provider Internal Medicine | DX: Z12.31 Encounter for screening mammogram for malignant neoplasm of breast (principal) | CPT/HCPCS: 77063; 77067 ==

== ENCOUNTER → 2024-01-23 10:30 | Outpatient (BNV) | payer MEDICARE, SELFPAY | PROVIDERS: PCP Internal Medicine; Visit Provider Radiology Diagnostic Radiology | DX: Z12.31 Encounter for screening mammogram for malignant neoplasm of breast (principal) | CPT/HCPCS: 77063; 77067 ==

== ENCOUNTER 2024-03-18 13:16 | Emergency (ER) | payer MEDICARE, SELFPAY ==
--- NOTE | ~2024-03-18 | US_ITS ---
EXAMINATION: US VENOUS ULTRASOUND WITH DOPPLER LOWER EXTREMITY, RIGHT CLINICAL INFORMATION: Right calf discomfort COMPARISON: None available. TECHNIQUE: Ultrasound of the deep veins is performed from the hip to the calf with compression sonography and color and pulse Doppler assessment. Spectral analysis with color-flow imaging is performed. FINDINGS: There is normal venous compression and respiratory variation and augmented flow. The visualized common femoral vein, superficial femoral vein, profunda femoral vein, popliteal vein, and the trifurcation region shows no evidence of deep venous thrombosis. Complex fluid collection is seen posteriorly. Measures 7 x 1.5 x 3.4 cm. This may represent a ruptured Tavarez's cyst. If the patient's symptoms persist, followup ultrasound in 5 days 7 days might be of value to exclude proximal propagation from a non-visualized calf vein. US/US venous duplex LE RT IMPRESSION: No DVT demonstrated in the right lower extremity. Findings suggest a complex/ruptured Tavarez's cyst versus other etiology posterior medially in the knee. If further evaluation is warranted recommend MR
[2024-03-18 13:34] VITALS: BP 118/85; PULSE 66; RESP 18; TEMP 36.4; O2SAT 99; BMI 21.2
--- NOTE | 2024-03-18 13:38 | ED.LOWEXIN ---
HPI - Extremity Injury (Lower) General Chief Complaint: General Medical Stated Complaint: Sent by Dr for ultrasound Related Data Home Medications ?Medication ?Instructions ?Recorded ?Confirmed blood-glucose meter #1 ea 08/01/20 06/06/23 Previous Rx's ?Medication ?Instructions ?Recorded blood sugar diagnostic #100 ea 11/23/20 lancets 33 gauge (BD Ultra Fine #100 ea 12/29/20 Lancets) metformin 500 mg tablet 500 mg PO DAILY #90 tabs 01/28/23 atorvastatin 20 mg tablet 20 mg PO DAILY 90 days #90 tabs 07/17/23 levothyroxine 100 mcg tablet 100 mcg PO DAILY #90 tabs 07/17/23 Allergies Allergy/AdvReac Type Severity Reaction Status Date / Time No Known Allergies Allergy Verified 03/18/24 13:38 [facility] Past Medical History Medical History (Updated 03/18/24 @ 23:21 by MARTÍN Adkins) Skin growth Mammogram normal Osteopenia Hypothyroidism Hyperlipidemia Diabetes Diabetic eye exam FH: celiac disease Surgical History History of plastic surgery History of colonoscopy Family History Family History Father Pancreatic cancer Mother Celiac disease COPD (chronic obstructive pulmonary disease) Brother No problems noted. Brother Celiac disease Social History Social History Housing: House Patient Tobacco Use Status: Former Tobacco user e-Cigarette/Vaping Use: Never Used Second Hand Smoke Exposure: No Advance Directives: No Advance Directives Information Provided: No Do you have a plan to hurt others: No Plan service: No Current occupational status: retired Cognitive needs: No Hearing needs: No Vision needs: No Physical Exam Vital Signs: Vital Signs: Last Vital Signs Temp 97.5 F 03/18/24 13:34 Pulse 66 03/18/24 13:34 Resp 18 03/18/24 13:34 BP 118/85 03/18/24 13:34 Pulse Ox 99 03/18/24 13:34 O2 Del Method Room Air 03/18/24 13:34 BMI result Body Mass Index 21.2 Course Course Course Narrative: This is a Rapid Medical Examination (RME) performed by Cristal David PA-C in triage. Full HPI, ROS, assessment and treatment plan per primary provider in the Main ED. 79 yo female hx of OA, hypothyroidism, HDL, DM here for eval of right calf discomfort/ swelling, worsening over the last 2-3 wks. pain is worse with ambulation. she was seen by her PCP for this, advised to come to ED for venous duplex. no hx of VTE. not on AC. denies chest pain, SOB, hemoptysis. no recent travel/ long car rides. +right calf tenderness on exam. well appearing. ambulating w/ steady gait. Plan: labs, venous duplex ordered Reevaluation(s) Reevaluation #1: Patient left the ED with out completing treatment. Medical Decision Making Lab Data 03/18/24 15:13 03/18/24 15:13 Labs: Lab Results 03/18/24 Range/Units 15:13 WBC 5.8 (4.8-10.8) X10*3/uL RBC 4.10 L (4.20-5.50) X10*6/uL Hgb 12.2 (12.0-16.0) g/dl Hct 36.8 L (37.0-47.0) % MCV 89.8 (80.0-98.0) fL MCH 29.8 (27.0-33.0) pg MCHC 33.2 (31.0-35.0) g/dl RDW 13.2 (11.0-16.0) % Plt Count 347 (160-400) X10*3/uL MPV 9.0 L (9.4-12.3) fL Immature Gran % (Auto) 0.2 (0.0-0.4) % Neut % (Auto) 55.5 (45-73) % Lymph % (Auto) 30.2 (20-40) % [place] % (Auto) 10.6 (2-11) % Eos % (Auto) 2.6 (0-4) % Baso % (Auto) 0.9 (0-2) % Lymph # (Auto) 1.7 (1.2-4.9) X10*3/uL [place] # (Auto) 0.6 (0.1-1.2) X10*3/uL Eos # (Auto) 0.2 (0.0-0.4) X10*3/uL Baso # (Auto) 0.1 (0.0-0.2) X10*3/uL Abs Immat Gran (auto) 0.01 (0.00-0.03) X10*3/uL Absolute Neuts (auto) 3.2 (2.0-8.3) x10*3/uL Absolute Nucleated RBC 0.000 (0.0-0.012) X10*3/uL Nucleated RBC % (auto) 0.0 (0.0-0.2) /100WBC PT 11.4 (11.1-13.3) SEC INR 0.9 (0.9-1.1) Sodium 142 (135-145) mmol/L Potassium 3.9 (3.3-5.1) mmol/L Chloride 104 (96-108) mmol/L Carbon Dioxide 30 H (22-29) mmol/L Anion Gap 12 (12-20) BUN 15 (9-16) mg/dL Creatinine 0.66 (0.5-1.4) mg/dL Estim Creat Clear Calc 52.9 Estimated GFR > 60 Random Glucose 114 (60-115) mg/dL Calcium 10.0 (8.4-10.2) mg/dL Magnesium 2.1 (1.6-2.6) mg/dL Total Bilirubin 0.7 (0.0-1.0) mg/dL AST 15 (5-31) U/L ALT 9 (0-31) U/L Alkaline Phosphatase 107 (39-117) U/L Total Protein 8.4 H (6.5-8.0) g/dL Albumin 4.4 (3.5-5.0) g/dL Discharge Plan Discharge Clinical Impression: Pain of right calf Patient Disposition: Left W/O Completing Treatment Prescriptions: No Action (DME) blood sugar diagnostic Strip See Rx Instructions Not Applicable DAILY Qty: 100 1RF Rx Instructions: use 1 strip once a day to test blood sugar (DME) lancets [BD Ultra Fine Lancets] 33 gauge misc See Rx Instructions .ROUTE .MEDSUPPLY Qty: 100 0RF Rx Instructions: QD metformin 500 mg tablet 500 mg PO DAILY Qty: 90 3RF levothyroxine 100 mcg tablet 100 mcg PO DAILY Qty: 90 3RF atorvastatin 20 mg tablet 20 mg PO DAILY 90 Days Qty: 90 3RF (DME) blood-glucose meter Kit See Rx Instructions .ROUTE DAILY Qty: 1 Rx Instructions: As directed Discharge Date/Time: 03/18/24 21:25
--- NOTE | 2024-03-18 14:56 | MHC.EDTECH ---
No answer for lab work @ [id number]
[2024-03-18 15:17] LABS: MANUAL DIFF FLAG NO
[2024-03-18 15:24] LABS: Basophils Absolute Auto 0.1 X10*3/uL (0.0-0.2); Basophils Percent Auto 0.9 % (0-2); Eosinophils Absolute Auto 0.2 X10*3/uL (0.0-0.4); Eosinophils Percent Auto 2.6 % (0-4); Hematocrit 36.8 % (37.0-47.0); Hemoglobin 12.2 g/dl (12.0-16.0); Imm Gran Abs Auto 0.01 X10*3/uL (0.00-0.03); Imm Gran Pct Auto 0.2 % (0.0-0.4); Lymphocytes Absolute Auto 1.7 X10*3/uL (1.2-4.9); Lymphocytes Percent Auto 30.2 % (20-40); Mean Corpuscular HGB Conc 33.2 g/dl (31.0-35.0); Mean Corpuscular Hemoglobin 29.8 pg (27.0-33.0); Mean Corpuscular Volume 89.8 fL (80.0-98.0); Monocytes Absolute Auto 0.6 X10*3/uL (0.1-1.2); Monocytes Percent Auto 10.6 % (2-11); Neutrophils Absolute Auto 3.2 x10*3/uL (2.0-8.3); Neutrophils Percent Auto 55.5 % (45-73); Platelet Count 347 X10*3/uL (160-400); Red Cell Distribution Width 13.2 % (11.0-16.0); White Blood Count 5.8 X10*3/uL (4.8-10.8)
[2024-03-18 15:31] LABS: INTERNATIONAL NORM RATIO 0.9 (0.9-1.1); Prothrombin Time 11.4 SEC (11.1-13.3)
[2024-03-18 15:36] LABS: Alanine Aminotransferase 9 U/L (0-31); Albumin Level 4.4 g/dL (3.5-5.0); Alkaline Phosphatase 107 U/L (39-117); Anion Gap 12 (12-20); Aspartate Amino Transferase 15 U/L (5-31); Bilirubin Total 0.7 mg/dL (0.0-1.0); Blood Urea Nitrogen 15 mg/dL (9-16); Carbon Dioxide 30 mmol/L (22-29); Chloride 104 mmol/L (96-108); Creatinine Clr Calc Pharmacy 52.9; Estimated Glomerular Filt Rate > 60; Glucose Random 114 mg/dL (60-115); Magnesium 2.1 mg/dL (1.6-2.6); Potassium 3.9 mmol/L (3.3-5.1); Sodium 142 mmol/L (135-145); Total Protein 8.4 g/dL (6.5-8.0)
--- NOTE | 2024-03-18 21:25 | PC.NURSE ---
called in WR no answer
== END 2024-03-18 21:25 | disposition left against medical advice (07) ==
PROVIDERS: Physician Assistant Medical; Emergency Provider Emergency Medicine; PCP Internal Medicine
DX: M79.661 Pain in right lower leg (principal); E11.9 Type 2 diabetes mellitus without complications; R60.0 Localized edema; Z79.84 Long term (current) use of oral hypoglycemic drugs; Z79.899 Other long term (current) drug therapy
CPT/HCPCS: 36415; 80053; 83735; 85025; 85610; 93971; 99281; 99284

== ENCOUNTER 2024-06-07 06:45 | Outpatient (REF) | payer MEDICARE, SELFPAY ==
[2024-06-07 07:07] LABS: MANUAL DIFF FLAG NO
[2024-06-07 07:48] LABS: Basophils Percent Auto 0.5 % (0-2); Eosinophils Absolute Auto 0.2 X10*3/uL (0.0-0.4); Eosinophils Percent Auto 4.1 % (0-4); Hematocrit 36.3 % (37.0-47.0); Hemoglobin 11.6 g/dl (12.0-16.0); Imm Gran Abs Auto 0.05 X10*3/uL (0.00-0.03); Imm Gran Pct Auto 0.9 % (0.0-0.4); Lymphocytes Absolute Auto 1.7 X10*3/uL (1.2-4.9); Lymphocytes Percent Auto 30.1 % (20-40); Mean Corpuscular Hemoglobin 28.6 pg (27.0-33.0); Mean Corpuscular Volume 89.6 fL (80.0-98.0); Mean Platelet Volume 9.2 fL (9.4-12.3); Monocytes Absolute Auto 0.6 X10*3/uL (0.1-1.2); Monocytes Percent Auto 9.9 % (2-11); Neutrophils Absolute Auto 3.1 x10*3/uL (2.0-8.3); Neutrophils Percent Auto 54.5 % (45-73); Platelet Count 360 X10*3/uL (160-400); Red Blood Count 4.05 X10*6/uL (4.20-5.50); Red Cell Distribution Width 13.6 % (11.0-16.0); White Blood Count 5.7 X10*3/uL (4.8-10.8)
[2024-06-07 08:19] LABS: Alanine Aminotransferase 9 U/L (0-31); Albumin Level 4.1 g/dL (3.5-5.0); Alkaline Phosphatase 98 U/L (39-117); Anion Gap 13 (12-20); Aspartate Amino Transferase 14 U/L (5-31); Bilirubin Total 0.9 mg/dL (0.0-1.0); Blood Urea Nitrogen 11 mg/dL (9-16); Calcium 9.4 mg/dL (8.4-10.2); Carbon Dioxide 28 mmol/L (22-29); Chloride 103 mmol/L (96-108); Cholesterol 156 mg/dL (<200); Estimated Glomerular Filt Rate > 60; Glucose Fasting 145 mg/dL (60-99); HDL Cholesterol 64 mg/dL (>40); LDL Cholesterol Calculated 74 mg/dL (<100); Potassium 3.9 mmol/L (3.3-5.1); Sodium 140 mmol/L (135-145); Total Protein 7.8 g/dL (6.5-8.0); Triglycerides 90 mg/dL (<150)
[2024-06-07 08:36] LABS: TSH reflex Free T4 11.78 uIU/mL (0.32-4.0)
[2024-06-07 09:03] LABS: Estimated Average Glucose 146 mg/dL; Hemoglobin A1c % 6.7 % (<6.0)
[2024-06-07 09:22] LABS: Free T4 (Free Thyroxine) 0.81 ng/dL (0.71-1.85)
== END 2024-06-07 06:46 | disposition home or self-care (01) ==
LOC: HO.LAB 06:45
PROVIDERS: PCP Internal Medicine; Visit Provider Internal Medicine
DX: E11.9 Type 2 diabetes mellitus without complications (principal); E03.9 Hypothyroidism, unspecified; E78.5 Hyperlipidemia, unspecified
CPT/HCPCS: 36415; 80053; 80061; 83036; 84439; 84443; 85025

== ENCOUNTER 2024-06-09 08:46 | Outpatient (AMB) | payer MEDICARE, SELFPAY ==
[2024-06-09 08:53] VITALS: BP 130/62; PULSE 64; O2SAT 98; BMI 20.7
--- NOTE | 2024-06-09 08:53 | A.OFFVIS_ITS ---
Intake Vital Signs 06/09/24 08:53 Height 5 ft 2 in Weight 113 lb BMI 20.7 BP 130/62 Blood Pressure Location Rt brachial Position Sitting Pulse 64 Pulse Source Pulse Oximeter Pulse Oximetry (%) 98 Oxygen Delivery Method Room Air Intake Visit Reasons: SWV [id number] Allergies No Known Allergies Allergy (Verified 06/09/24 08:54) Medication List - Last Reconciled 06/09/24 by Claudia Earl MD atorvastatin 20 mg PO DAILY 90 days blood sugar diagnostic use 1 strip once a day to test blood sugar blood-glucose meter As directed lancets (BD Ultra Fine Lancets) QD levothyroxine 100 mcg PO DAILY metformin 500 mg PO DAILY rosuvastatin 10 mg PO DAILY HPI SWV [id number] HPI Details Initiated the conversation about Advanced Directives. Advanced Directives help? patients prepare for current and future decisions about their medical treatment? and place of care. Discussed with patient that it is a process where a patients? current condition and prognosis are reviewed, their wishes for information? regarding their illness are elicited, and likely medical dilemmas are presented? and options discussed. The form can be amended as needed, reviewed yearly and? make changes as needed IPPE/AWV ? year old presents? for her ? Annual? Wellness Visit, initial visit.? Medical / Social History Reviewed? Past Medical History ?Yes? . ? [place]? of Care / Care Team list updated ?Yes . ? Surgical/Hospitalization? History ?Yes . ? Current Medications? (including OTC and supplements) ?Yes . ? Family History ?Yes? . ? Tobacco? Control form ?Yes . ? AUDIT-C (Alcohol use) form? ?Yes . ? Illicit drug use in Social? History ?Yes . ? Current diagnosis of? depression? ?No ? Appropriate PHQ2/PHQ9? completed ?Yes . ? Data entered by ?Medical? Fuel Conversion Technician and reviewed by provider ? Fall Risk ? Fall? History? Have you had any falls with? injury in the past year? ?No . ? Have you had two or more? falls in the past year? ?No . ? Fall Risk Assessment: ?No? falls in the past year . ? HRA filled out by? the patient, reviewed by Provider and scanned. ? IPPE/AWV ? Balance? [place]? ?Yes . ? Tandem? walk ?Yes . ? Walk and? Turn ?Yes . ? Rise from? sit to stand ?Yes . ?Vision? Corrective? lens ?Yes ? Vision? screen ? Up-to-date, has an appointment [] for vision? screening and glaucoma screening ?Hearing? Whisper? test ?pass .? Initiated the conversation about Advanced Directives. Advanced Directives help? patients prepare for current and future decisions about their medical treatment? and place of care. Discussed with patient that it is a process where a patients? current condition and prognosis are reviewed, their wishes for information? regarding their illness are elicited, and likely medical dilemmas are presented? and options discussed. The form can be amended as needed, reviewed yearly and? make changes as needed Written? Plan?Completed. See Patient? Documents. [facility] Medical History (Updated 06/09/24 @ 09:34 by Claudia Earl MD) Skin growth Mammogram normal Osteopenia Hypothyroidism Hyperlipidemia Diabetes Diabetic eye exam FH: celiac disease Surgical History History of plastic surgery History of colonoscopy Family History Father Pancreatic cancer Mother Celiac disease COPD (chronic obstructive pulmonary disease) Brother No problems noted. Brother Celiac disease Social History Housing: House Patient Tobacco Use Status: Former Tobacco user e-Cigarette/Vaping Use: Never Used Second Hand Smoke Exposure: No service: No Current occupational status: retired Cognitive needs: No Hearing needs: No Vision needs: No Questionnaire Medicare Wellness Checkup What is your age?: 80 or older What gender do you identify with?: female During the past 4 weeks, how much have you been bothered by emotional problems such as feeling anxious, depressed, irritable, sad or downhearted, and blue?: not at all During the past 4 weeks, has your physical & emotional health limited your social activities with family, friends, neighbors, or groups?: not at all During the past 4 weeks, how much bodily pain have you generally had?: moderate pain During the past 4 weeks, was someone available to help you if you needed & wanted help?: yes, as much as I wanted During the past 4 weeks, what was the hardest physical activity you could do for at least 2 minutes?: moderate Can you get to places out of walking distance without help? (For eg., can you travel alone on buses, taxis or drive your car?): Yes Can you go shopping for groceries or clothes without someone's help?: Yes Can you prepare your own meals?: Yes Can you do your housework without help?: Yes Because of any health problems, do you need the help of another person with your personal care needs such as eating, bathing, dressing or getting around the house?: No Can you handle your own money without help?: Yes During the past 4 weeks, how would you rate your health in general?: good During the past 4 weeks how have things been going for you?: very well; could hardly better Are you having difficulties driving your car?: no Do you always fasten your seat belt when you are in a car?: yes, usually During past 4 weeks, have you been bothered by the following: never: Falling or dizzy when standing up, Sexual problems?, Trouble eating well?, Teeth or denture problems?, Problems using the telephone? and Tiredness or fatigue? Have you fallen 2 or more times in the past year?: No Are you afraid of falling?: No Are you a smoker?: no During the past 4 weeks, how many drinks of wine, beer, or other alcoholic beverages did you have?: 2-5 drinks per week Do you exercise for about 20 minutes 3 or more times a week?: yes, most of the time Have you been given information to help with the following?: no: Hazards in your house that might hurt you? and no: Keeping track of your medications? How often do you have trouble taking medicines the way you have been told to take them?: I always take medicine as prescribed How confident are you that you can control & manage most of your health problems?: very confident What is your race?: White Activity of Daily Living Bathing - sponge bath, tub bath or shower: receives no assistance (gets in/out by self, if usual bathing means Dressing - getting clothes from closets & drawers, including inner/outer garments & fasteners.: gets clothes & gets completely dressed without help Toileting - going to the 'toilet room' for urine/bowel elimination & cleaning self/arranging clothes: goes to toilet room, cleans self, arranges clothes without help Transfer: moves in & out of bed and chair without help (may use support object) Continence: controls urination/bowel movements completely by self Feeding: feeds self without help Total Score: 0 Information obtained from: patient Using telephone: independent Traveling: independent Shopping: independent Preparing meals: independent Housework: independent Taking medicine: independent Managing money: independent PHQ-9 Over the last 2 weeks, how often have you been bothered by any of the following problems? 1. Little interest or pleasure in doing things: not at all 2. Feeling down, depressed, or hopeless: not at all 3. Trouble falling or staying asleep, or sleeping too much: not at all 4. Feeling tired or having little energy: not at all 5. Poor appetite or overeating: not at all 6. Feeling bad about yourself - or that you are a failure or have let yourself or your family down: not at all 7. Trouble concentrating on things, such as reading the newspaper or watching television: not at all 8. Moving or speaking so slowly that other people could have noticed. Or the opposite - being so fidgety or restless that you have been moving around a lot more than usual: not at all 9. Thoughts that you would be better off or of hurting yourself in some way: not at all Total score: 0 Depression Screening Interpretation: Negative Depression Screening Done: Yes 32531 - PHQ-9 Billing: Yes Source: Developed by Drs. Keith Tan, Blanca Coleman, David Coleman and colleagues, with an educational tray from [employer]. Review of Systems Const All systems reviewed & are unremarkable except as noted in HPI and below Reports no additional complaints Eyes Reports no additional complaints ENT Reports no additional complaints Card Reports no additional complaints Resp Reports no additional complaints GI Reports no additional complaints Reports no additional complaints Physical Exam Vital Signs: Last Vital Signs Pulse 64 06/09/24 08:53 BP 140/62 H 06/09/24 08:53 Pulse Ox 98 06/09/24 08:53 Oxygen Delivery Method Room Air 06/09/24 08:53 BMI result Body Mass Index 20.7 Const General: no acute distress Eyes General: appearance normal, both eyes and all related structures Neck Neck: Yes no lymphadenopathy and Yes supple Resp Effort & Inspection: normal respiratory effort Auscultation: clear to auscultation bilaterally Cardio Rhythm: regular rhythm Heart sounds: S1 normal heart sound present and S2 normal heart sound present GI Inspection: Yes normal to inspection Palpation (GI): Soft to palpation Percussion: Yes normal to percussion Auscultation: normal bowel sounds Extrem General: Yes no clubbing, cyanosis or edema Assessment & Plan Assessment & Plan (1) Diabetes: Comment: A1C goal less than 7.5 Code(s): E11.9 - Type 2 diabetes mellitus without complications Plan: A1c 6.7, continue current medications ADA diet and regular exercise (2) Mammogram normal: Comment: [facility] 2023 Plan: Up-to-date with the mammogram (3) Hypothyroidism: Code(s): E03.9 - Hypothyroidism, unspecified Plan: Medication compliance discussed with the patient. Recheck TSH in 3 months (4) Hyperlipidemia: Comment: Atorvastatin caused body aches Code(s): E78.5 - Hyperlipidemia, unspecified Plan: Change atorvastatin to Crestor check lipid profile in 3 months (5) Vitamin D deficiency: Code(s): E55.9 - Vitamin D deficiency, unspecified Plan: Continue vitamin-D (6) Annual physical exam: Code(s): Z00.00 - Encounter for general adult medical examination without abnormal findings Plan: Well-balanced diet regular physical activity discussed with the patient. Orders: Orders Hemoglobin A1c 3 Months E03.9 - Hypothyroidism, unspecified, E11.9 - Type 2 diabetes mellitus without complications, E55.9 - Vitamin D deficiency, unspecified, E78.5 - Hyperlipidemia, unspecified Comprehensive Johnson. Panel Fast 3 Months E03.9 - Hypothyroidism, unspecified, E11.9 - Type 2 diabetes mellitus without complications, E55.9 - Vitamin D deficiency, unspecified, E78.5 - Hyperlipidemia, unspecified Complete Blood Count Auto Diff 3 Months E03.9 - Hypothyroidism, unspecified, E11.9 - Type 2 diabetes mellitus without complications, E55.9 - Vitamin D deficiency, unspecified, E78.5 - Hyperlipidemia, unspecified Vitamin B12 and Folate 3 Months E03.9 - Hypothyroidism, unspecified, E11.9 - Type 2 diabetes mellitus without complications, E55.9 - Vitamin D deficiency, unspecified, E78.5 - Hyperlipidemia, unspecified TSH reflex Free T4 3 Months E03.9 - Hypothyroidism, unspecified, E11.9 - Type 2 diabetes mellitus without complications, E55.9 - Vitamin D deficiency, unspecified, E78.5 - Hyperlipidemia, unspecified IRON PROFILE 3 Months E03.9 - Hypothyroidism, unspecified, E11.9 - Type 2 diabetes mellitus without complications, E55.9 - Vitamin D deficiency, unspecified, E78.5 - Hyperlipidemia, unspecified Medications: New rosuvastatin 10 mg PO DAILY 90 tabs 3RF Quality Reporting (2019) Depression/Bipolar (159/160/161/177) PHQ-9: Total score: 0 Coding Level of Care Code Medicare Subsequent (G0439) Diagnoses Diabetes E11.9 Mammogram normal Hypothyroidism E03.9 Hyperlipidemia E78.5 Vitamin D deficiency E55.9 Annual physical exam Z00.00 Advance Care Planning Advance Care Planning discussion: Declined forms Forms completed: Health Care Proxy Did not discuss due to Cultural/Spiritual beliefs: Yes
== END 2024-06-09 09:34 | disposition home or self-care (01) ==
PROVIDERS: PCP Internal Medicine; Visit Provider Internal Medicine
DX: Z00.00 Encounter for general adult medical examination without abnormal findings (principal); E11.69 Type 2 diabetes mellitus with other specified complication; E03.9 Hypothyroidism, unspecified; E78.5 Hyperlipidemia, unspecified; E55.9 Vitamin D deficiency, unspecified
CPT/HCPCS: G0439

== ENCOUNTER 2024-06-09 09:00 | Outpatient (REF) | payer MEDICARE, SELFPAY ==
[2024-06-09 11:06] LABS: Microalbumin Excretion Rate Ur 7 mg/24Hr; Total Volume 24 Hour Urine 625 mL
== END 2024-06-09 09:01 | disposition home or self-care (01) ==
LOC: HO.LNP 09:00
PROVIDERS: Visit Provider Internal Medicine
DX: E11.9 Type 2 diabetes mellitus without complications (principal); E03.9 Hypothyroidism, unspecified; E78.5 Hyperlipidemia, unspecified
CPT/HCPCS: 82043

== ENCOUNTER 2024-08-13 09:03 | Outpatient (AMB) | payer MEDICARE, SELFPAY ==
--- NOTE | 2024-08-13 09:24 | MHC.PC.OV ---
Vital Signs 08/13/24 09:31 Height 5 ft 2 in Weight 112 lb BMI 20.5 BP 128/66 Blood Pressure Location Lt brachial Position Sitting Pulse 72 Pulse Source Pulse Oximeter Pulse Oximetry (%) 95 Oxygen Delivery Method Room Air Intake Visit Reasons: shingles Intake Note: Pt is here today for a sick visit. Pt c/o painful rash on the R side of her back. Allergies No Known Allergies Allergy (Verified 08/13/24 09:34) Medication List - Last Reconciled 08/13/24 by Claudia Earl MD atorvastatin 20 mg PO DAILY 90 days blood sugar diagnostic use 1 strip once a day to test blood sugar blood-glucose meter As directed lancets (BD Ultra Fine Lancets) QD levothyroxine 100 mcg PO DAILY metformin 500 mg PO DAILY valacyclovir (Valtrex) 1,000 mg PO Q8H Tobacco use date assessed: 08/13/24 Fall risk assessment: No Falls in past year Last assessed Fall Risk: 08/13/24 Dental Screening Dental Screen Date: 08/13/24 Did you have a dental visit in the last 12 months?: Yes Did you have a dental problem in the last 6 months where you did not have access to dental care?: No Was dental information given to patient?: Patient has dentist HPI shingles HPI Details Patient presents complaining of painful rash on right side of her lower chest for 2 days. Type 2 diabetes hyperlipidemia and hypothyroidism are stable on current medications. [facility] Medical History Skin growth Mammogram normal Osteopenia Hypothyroidism Hyperlipidemia Diabetes Diabetic eye exam FH: celiac disease Surgical History History of plastic surgery History of colonoscopy Family History Father Pancreatic cancer Mother Celiac disease COPD (chronic obstructive pulmonary disease) Brother No problems noted. Brother Celiac disease Social History Housing: House Patient Tobacco Use Status: Former Tobacco user e-Cigarette/Vaping Use: Never Used Second Hand Smoke Exposure: No service: No Current occupational status: retired Cognitive needs: No Hearing needs: No Vision needs: No Questionnaire Thrive Questionnaire Date Thrive assessed: 06/09/24 I am a: Patient What is your living situation today?: I have a steady place to live Within the past 12 months, did the food you bought not last and you didn't have the money to get more?: Never true Within the past 12 months, did you worry whether your food would run out before you got money to buy more?: Never true Do you have trouble paying for medicines?: No Do you have trouble getting transportation to medical appointments?: No Do you have trouble paying your heating and electricity bill?: No Do you have trouble taking care of your child, family member or friend?: No Do you have trouble with day-to-day activities such as bathing, preparing meals, shopping, managing finances, etc.?: No Are you currently unemployed and looking for a job?: No Are you interested in more education?: No Please select the resources that you would like help with: None Currently or been in a relationship where the following occur: No concerns reported THRIVE Score: 0 AUDIT C Alcohol Use Questionnaire (AUDIT-C) 1. How often do you have a drink containing alcohol?: Monthly or less 2. How many drinks containing alcohol do you have on a typical day when you are drinking?: 1 or 2 3. How often do you have six or more drinks on one occasion?: Never Total Score: 1 ESA-7 AMB Questionnaire ESA-7 Date ESA - 7 assessed: 01/20/23 Source: Developed by Drs. Keith Tan, Blanca Coleman, David Coleman and colleagues, with an educational tray from [employer]. Review of Systems Const All systems reviewed & are unremarkable except as noted in HPI and below Card Reports no additional complaints Resp Reports no additional complaints GI Reports no additional complaints Reports no additional complaints Physical exam (Primary Care) Vital Signs: Last Vital Signs Pulse 72 08/13/24 09:31 BP 128/66 08/13/24 09:31 Pulse Ox 95 08/13/24 09:31 Oxygen Delivery Method Room Air 08/13/24 09:31 BMI result Body Mass Index 20.5 Tobacco/Smoking Status: Tobacco use Status Tobacco use date assessed 08/13/24 08/13/24 09:36 Patient Tobacco Use Status Former Tobacco user 08/13/24 09:24 e-Cigarette/Vaping Use Never Used 08/13/24 09:24 Thrive Assessment: Date of Thrive Assessment Date Thrive assessed 06/09/24 08/13/24 09:24 Currently or been in a relationship where the following occur: No concerns reported Const General: no acute distress HENMT Mouth: Normal oral and palatal mucosa present Eyes General: appearance normal, both eyes and all related structures Neck Neck: Yes supple Resp Effort & Inspection: normal respiratory effort Auscultation: clear to auscultation bilaterally Cardio Rhythm: regular rhythm Heart sounds: S1 normal heart sound present and S2 normal heart sound present Skin Other: Erythematous vesicular rash on the right lower torso in dermatomal distribution Coding Level of Care Code Est Pt Level 4 (22830) Diagnoses Hypothyroidism E03.9 Hyperlipidemia E78.5 Diabetes E11.9 Herpes zoster B02.9 Assessment & Plan Assessment & Plan (1) Hypothyroidism: Code(s): E03.9 - Hypothyroidism, unspecified Category: Medical Plan: Continue levothyroxine check TSH today (2) Hyperlipidemia: Code(s): E78.5 - Hyperlipidemia, unspecified Category: Medical Plan: Continue atorvastatin (3) Diabetes: Comment: A1C goal less than 7.5 Code(s): E11.9 - Type 2 diabetes mellitus without complications Category: Medical Plan: Continue metformin ADA diet check A1c today. Patient is going to [facility] for the winter and will follow-up in February (4) Herpes zoster: Code(s): B02.9 - Zoster without complications Category: Medical Plan: Valtrex is prescribed and supportive care discussed with the patient Orders: Orders Lipid Panel 5 Months E03.9 - Hypothyroidism, unspecified, E11.9 - Type 2 diabetes mellitus without complications, E78.5 - Hyperlipidemia, unspecified Comprehensive [place]. Panel Fast 5 Months E03.9 - Hypothyroidism, unspecified, E11.9 - Type 2 diabetes mellitus without complications, E78.5 - Hyperlipidemia, unspecified Hemoglobin A1c 5 Months E03.9 - Hypothyroidism, unspecified, E11.9 - Type 2 diabetes mellitus without complications, E78.5 - Hyperlipidemia, unspecified TSH reflex Free T4 5 Months E03.9 - Hypothyroidism, unspecified, E11.9 - Type 2 diabetes mellitus without complications, E78.5 - Hyperlipidemia, unspecified Medications: New valacyclovir (Valtrex) 1,000 mg PO Q8H 30 tabs 0RF
[2024-08-13 09:31] VITALS: BP 128/66; PULSE 72; O2SAT 95; BMI 20.5
== END 2024-08-13 09:54 | disposition home or self-care (01) ==
LOC: HO.HMCC 09:04
PROVIDERS: PCP Internal Medicine; Visit Provider Internal Medicine
DX: E03.9 Hypothyroidism, unspecified (principal); E78.5 Hyperlipidemia, unspecified; E11.9 Type 2 diabetes mellitus without complications; B02.9 Zoster without complications

== ENCOUNTER 2024-08-13 09:03 | Outpatient (REF) | payer MEDICARE, SELFPAY ==
[2024-08-13 13:59] LABS: Estimated Average Glucose 151 mg/dL; Hemoglobin A1c % 6.9 % (<6.0)
[2024-08-13 14:20] LABS: Alanine Aminotransferase 10 U/L (0-31); Albumin Level 4.3 g/dL (3.5-5.0); Alkaline Phosphatase 99 U/L (39-117); Anion Gap 12 (12-20); Aspartate Amino Transferase 23 U/L (5-31); Bilirubin Total 0.7 mg/dL (0.0-1.0); Blood Urea Nitrogen 20 mg/dL (9-16); Calcium 9.7 mg/dL (8.4-10.2); Carbon Dioxide 27 mmol/L (22-29); Chloride 102 mmol/L (96-108); Estimated Glomerular Filt Rate > 60; Glucose Fasting 142 mg/dL (60-99); Iron 61 mcg/dL (30-160); Percent Iron Saturation 24 % (15-50); Potassium 4.3 mmol/L (3.3-5.1); Sodium 137 mmol/L (135-145); Total Iron Binding Capacity 257 mcg/dL (228-428); Total Protein 8.6 g/dL (6.5-8.0); Unsaturated Iron Binding 196 ug/dL
[2024-08-13 14:26] LABS: TSH reflex Free T4 16.75 uIU/mL (0.32-4.0)
[2024-08-13 14:40] LABS: Folate 9.5 ng/mL (> or = 4.0); Vitamin B12 353 pg/mL (200-900)
[2024-08-13 14:58] LABS: Free T4 (Free Thyroxine) 0.88 ng/dL (0.71-1.85)
== END 2024-08-13 09:04 | disposition home or self-care (01) ==
LOC: HO.HMGCLDS 09:03
PROVIDERS: PCP Internal Medicine; Visit Provider Internal Medicine
DX: E11.9 Type 2 diabetes mellitus without complications (principal); E03.9 Hypothyroidism, unspecified; E78.5 Hyperlipidemia, unspecified; E55.9 Vitamin D deficiency, unspecified
CPT/HCPCS: 36415; 80053; 82607; 82746; 83036; 83540; 84439; 84443; 99212

== ENCOUNTER 2024-10-19 10:21 | Outpatient (REF) | payer MEDICARE, SELFPAY ==
[2024-10-19 14:16] LABS: TSH reflex Free T4 7.25 uIU/mL (0.32-4.0)
[2024-10-19 15:08] LABS: Free T4 (Free Thyroxine) 1.04 ng/dL (0.71-1.85)
== END 2024-10-19 10:22 | disposition home or self-care (01) ==
LOC: HO.HMGCLDS 10:21
PROVIDERS: PCP Internal Medicine; Visit Provider Internal Medicine
DX: E03.9 Hypothyroidism, unspecified (principal)
CPT/HCPCS: 36415; 84439; 84443

== ENCOUNTER 2024-11-25 08:12 | Outpatient (REF) | payer MEDICARE, SELFPAY ==
--- NOTE | ~2024-11-25 | XR_ITS ---
CLINICAL HISTORY: M25.561 - Pain in right knee Standing AP view of the bilateral knees. Comparison: None Findings: No fractures or dislocations. Moderate medial and lateral compartment joint space narrowing. No radiopaque foreign body. IMPRESSION: Moderate medial and lateral compartment joint space narrowing bilaterally. This document has been electronically signed by: Migue Preciado MD on 11/26/2024 09:35:09
[2024-11-25 10:13] LABS: MANUAL DIFF FLAG NO
[2024-11-25 10:22] LABS: Basophils Percent Auto 0.4 % (0-2); Eosinophils Absolute Auto 0.1 X10*3/uL (0.0-0.4); Eosinophils Percent Auto 1.9 % (0-4); Hematocrit 32.9 % (37.0-47.0); Hemoglobin 10.9 g/dl (12.0-16.0); Imm Gran Abs Auto 0.02 X10*3/uL (0.00-0.03); Imm Gran Pct Auto 0.3 % (0.0-0.4); Lymphocytes Absolute Auto 1.4 X10*3/uL (1.2-4.9); Lymphocytes Percent Auto 19.6 % (20-40); Mean Corpuscular HGB Conc 33.1 g/dl (31.0-35.0); Mean Corpuscular Hemoglobin 29.1 pg (27.0-33.0); Mean Corpuscular Volume 87.7 fL (80.0-98.0); Monocytes Absolute Auto 0.9 X10*3/uL (0.1-1.2); Monocytes Percent Auto 13.1 % (2-11); Neutrophils Absolute Auto 4.5 x10*3/uL (2.0-8.3); Neutrophils Percent Auto 64.7 % (45-73); Platelet Count 364 X10*3/uL (160-400); Red Blood Count 3.75 X10*6/uL (4.20-5.50); Red Cell Distribution Width 12.4 % (11.0-16.0)
[2024-11-25 10:29] LABS: Estimated Average Glucose 157 mg/dL; Hemoglobin A1C 155.5263 umol/L; Hemoglobin A1c % 7.1 % (<6.0); Total Hemoglobin (HGBA1C) 2881.0739 umol/L
[2024-11-25 11:01] LABS: Alanine Aminotransferase 7 U/L (0-31); Albumin Level 3.8 g/dL (3.5-5.0); Alkaline Phosphatase 86 U/L (39-117); Anion Gap 12 (12-20); Aspartate Amino Transferase 17 U/L (5-31); Bilirubin Total 0.6 mg/dL (0.0-1.0); Blood Urea Nitrogen 19 mg/dL (9-16); Calcium 9.5 mg/dL (8.4-10.2); Carbon Dioxide 27 mmol/L (22-29); Chloride 103 mmol/L (96-108); Estimated Glomerular Filt Rate > 60; Glucose Random 168 mg/dL (60-115); Potassium 3.9 mmol/L (3.3-5.1); Sodium 138 mmol/L (135-145)
[2024-11-25 11:20] LABS: TSH reflex Free T4 0.84 uIU/mL (0.32-4.0); Vitamin D 25-OH Total 41.2 ng/mL (>30)
[2024-11-26 23:17] LABS: IgA 673 mg/dL (70-320); IgG 1599 mg/dL (600-1540); IgM 156 mg/dL (50-300)
== END 2024-11-25 08:13 | disposition home or self-care (01) ==
LOC: HO.HMGCX 08:12
PROVIDERS: PCP Internal Medicine; Visit Provider Internal Medicine
DX: D64.9 Anemia, unspecified (principal); E11.9 Type 2 diabetes mellitus without complications; E03.9 Hypothyroidism, unspecified; E55.9 Vitamin D deficiency, unspecified; M25.561 Pain in right knee; M25.562 Pain in left knee; R63.4 Abnormal weight loss
CPT/HCPCS: 73565; 80053; 82306; 82784; 83036; 84443; 85025; 86334; 86335; 96127; 99212

== ENCOUNTER 2024-11-25 08:12 | Outpatient (AMB) | payer MEDICARE, SELFPAY ==
[2024-11-25 08:30] VITALS: BP 126/64; PULSE 71; RESP 18; TEMP 36.7; O2SAT 98; BMI 19.6
--- NOTE | 2024-11-25 08:30 | MHC.PC.OV ---
Vital Signs 11/25/24 08:30 Height 5 ft 2 in Weight 107 lb BMI 19.6 BP 126/64 Blood Pressure Location Lt brachial Position Sitting Respiration 18 Pulse 71 Pulse Source Pulse Oximeter Temp 98.1 F Temp Source Oral Pulse Oximetry (%) 98 Oxygen Delivery Method Room Air Intake Visit Reasons: Pain in the back of the knees Intake Note: Pt is here today for a sick visit. Pt c/o pain behind her knees. Allergies No Known Allergies Allergy (Verified 11/25/24 08:36) Medication List - Last Reconciled 11/25/24 by Claudia Earl MD atorvastatin 20 mg PO DAILY 90 days blood sugar diagnostic use 1 strip once a day to test blood sugar blood-glucose meter As directed lancets (BD Ultra Fine Lancets) QD levothyroxine 1 tab 6 days per week, 1.5 tab 1 day per week orally daily; metformin 500 mg PO DAILY valacyclovir (Valtrex) 1,000 mg PO Q8H Tobacco use date assessed: 11/25/24 Fall risk assessment: No Falls in past year Last assessed Fall Risk: 11/25/24 Dental Screening Dental Screen Date: 11/25/24 Did you have a dental visit in the last 12 months?: Yes Did you have a dental problem in the last 6 months where you did not have access to dental care?: No Was dental information given to patient?: Patient has dentist HPI Pain in the back of the knees HPI Details Patient presents complaining of bilateral knee pain when walking up or down the stairs for 1 month. Patient denies pain at rest, injury, joint swelling or tenderness. Patient reports losing weight despite eating 3 meals a day. She denies change in appetite, night sweats, insomnia, depression, nausea vomiting, change in bowel habits, hematochezia melena. Patient spent 1 month in [facility] and is going to [place] in December. Type 2 diabetes hypothyroidism and hyperlipidemia controlled on current medications. 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 [facility] Medical History (Updated 11/25/24 @ 09:12 by Claudia Earl MD) Skin growth Mammogram normal Osteopenia Hypothyroidism Hyperlipidemia Diabetes Diabetic eye exam FH: celiac disease Surgical History History of plastic surgery History of colonoscopy Family History Father Pancreatic cancer Mother Celiac disease COPD (chronic obstructive pulmonary disease) Brother No problems noted. Brother Celiac disease Social History Housing: House Patient Tobacco Use Status: Former Tobacco user e-Cigarette/Vaping Use: Never Used Second Hand Smoke Exposure: No service: No Current occupational status: retired Cognitive needs: No Hearing needs: No Vision needs: No Questionnaire PHQ-9 Over the last 2 weeks, how often have you been bothered by any of the following problems? 1. Little interest or pleasure in doing things: not at all 2. Feeling down, depressed, or hopeless: not at all 3. Trouble falling or staying asleep, or sleeping too much: not at all 4. Feeling tired or having little energy: not at all 5. Poor appetite or overeating: not at all 6. Feeling bad about yourself - or that you are a failure or have let yourself or your family down: not at all 7. Trouble concentrating on things, such as reading the newspaper or watching television: not at all 8. Moving or speaking so slowly that other people could have noticed. Or the opposite - being so fidgety or restless that you have been moving around a lot more than usual: not at all 9. Thoughts that you would be better off or of hurting yourself in some way: not at all Total score: 0 Depression Screening Interpretation: Negative Depression Screening Done: Yes 49258 - PHQ-9 Billing: Yes Source: Developed by Drs. Keith Tan, Blanca Coleman, David Coleman and colleagues, with an educational tray from [employer]. Thrive Questionnaire Date Thrive assessed: 11/25/24 I am a: Patient What is your living situation today?: I have a steady place to live Within the past 12 months, did the food you bought not last and you didn't have the money to get more?: Never true Within the past 12 months, did you worry whether your food would run out before you got money to buy more?: Never true Do you have trouble paying for medicines?: No Do you have trouble getting transportation to medical appointments?: No Do you have trouble paying your heating and electricity bill?: No Do you have trouble taking care of your child, family member or friend?: No Do you have trouble with day-to-day activities such as bathing, preparing meals, shopping, managing finances, etc.?: No Are you currently unemployed and looking for a job?: No Are you interested in more education?: No Please select the resources that you would like help with: None Currently or been in a relationship where the following occur: No concerns reported THRIVE Score: 0 AUDIT C Alcohol Use Questionnaire (AUDIT-C) 1. How often do you have a drink containing alcohol?: 2-3 times a week 2. How many drinks containing alcohol do you have on a typical day when you are drinking?: 1 or 2 3. How often do you have six or more drinks on one occasion?: Never Total Score: 3 ESA-7 AMB Questionnaire ESA-7 Date ESA - 7 assessed: 11/25/24 Feeling nervous, anxious, or on edge: 0 = Not at all Not being able to stop or control worryin = Not at all Worrying too much about different things: 0 = Not at all Trouble relaxin = Not at all Being so restless that it is hard to sit still: 0 = Not at all Feeling afraid as if something awful might happen: 0 = Not at all Source: Developed by Drs. Keith Tan, Blanca Coleman, David Coleman and colleagues, with an educational tray from [employer]. ESA-7 Assessment Billing ESA-7 Assessment Tool: ESA-7 Assessment 56378 Review of Systems Const All systems reviewed & are unremarkable except as noted in HPI and below Eyes Reports no additional complaints ENT Reports no additional complaints Card Reports no additional complaints Resp Reports no additional complaints GI Reports no additional complaints Reports no additional complaints Physical exam (Primary Care) Vital Signs: Last Vital Signs Temp 98.1 F 11/25/24 08:30 Pulse 71 11/25/24 08:30 Resp 18 11/25/24 08:30 BP 126/64 11/25/24 08:30 Pulse Ox 98 11/25/24 08:30 Oxygen Delivery Method Room Air 11/25/24 08:30 BMI result Body Mass Index 19.6 Tobacco/Smoking Status: Tobacco use Status Tobacco use date assessed 11/25/24 11/25/24 08:41 Patient Tobacco Use Status Former Tobacco user 11/25/24 08:31 e-Cigarette/Vaping Use Never Used 11/25/24 08:31 PHQ-9: PHQ-9 Score PHQ-9: Total score 0 11/25/24 08:41 Depression Screening Interpretation: Negative Thrive Assessment: Date of Thrive Assessment Date Thrive assessed 11/25/24 11/25/24 08:41 Currently or been in a relationship where the following occur: No concerns reported Const General: no acute distress HENMT Head: Yes normal to inspection Eyes General: appearance normal, both eyes and all related structures Resp Effort & Inspection: normal respiratory effort Auscultation: clear to auscultation bilaterally Cardio Rhythm: regular rhythm Heart sounds: S1 normal heart sound present and S2 normal heart sound present GI Inspection: Yes normal to inspection Palpation (GI): Soft to palpation Percussion: Yes normal to percussion Auscultation: normal bowel sounds Extrem Other: There is decreased range of motion of both knees and crepitus, no joint swelling, tenderness erythema warmth Coding Level of Care Code Est Pt Level 4 (33992) Complex EM visit Add On G2211 Diagnoses Diabetes E11.9 Anemia D64.9 Hypothyroidism E03.9 Vitamin D deficiency E55.9 Knee pain, bilateral M25.561; M25.562 Weight loss R63.4 Additional Codes ESA-7 Assessment Billing - ESA-7 Assessment Tool: ESA-7 Assessment 16614 ([id number]) PHQ-9 - 87835 - PHQ-9 Billing: Yes ([id number]) Assessment & Plan Assessment & Plan (1) Diabetes: Comment: A1C goal less than 7.5 Code(s): E11.9 - Type 2 diabetes mellitus without complications Category: Medical Plan: Continue metformin check A1c (2) Anemia: Comment: Normal iron studies, vitamin B12 08/2024 Code(s): D64.9 - Anemia, unspecified Category: Medical Plan: Check CBC (3) Hypothyroidism: Code(s): E03.9 - Hypothyroidism, unspecified Category: Medical Plan: Continue levothyroxine check TSH level (4) Vitamin D deficiency: Code(s): E55.9 - Vitamin D deficiency, unspecified Category: Medical Plan: Check vitamin-D level (5) Knee pain, bilateral: Code(s): M25.561 - Pain in right knee; M25.562 - Pain in left knee Category: Medical Plan: Check x-rays of both knees. PT was recommended but patient declined. She will start exercising on stationary bike daily (6) Weight loss: Code(s): R63.4 - Abnormal weight loss Category: Medical Plan: increasing caloric intake ,adding nutritional supplement between meals at least once a day discussed with the patient. She will follow-up in 2 months Orders: Orders TSH reflex Free T4 Today D64.9 - Anemia, unspecified, E11.9 - Type 2 diabetes mellitus without complications Comprehensive Met. Panel Today D64.9 - Anemia, unspecified, E11.9 - Type 2 diabetes mellitus without complications Complete Blood Count Auto Diff Today D64.9 - Anemia, unspecified, E11.9 - Type 2 diabetes mellitus without complications Vitamin D 25-OH Total Today E03.9 - Hypothyroidism, unspecified, E55.9 - Vitamin D deficiency, unspecified Immunofixation Pnl, Serum Today D64.9 - Anemia, unspecified, E11.9 - Type 2 diabetes mellitus without complications Immunofixation, Random Urine Today D64.9 - Anemia, unspecified, E11.9 - Type 2 diabetes mellitus without complications Immunoglobulins,IgG IgA IgM Today D64.9 - Anemia, unspecified, E11.9 - Type 2 diabetes mellitus without complications Hemoglobin A1c Today D64.9 - Anemia, unspecified, E11.9 - Type 2 diabetes mellitus without complications XR knee standing BI Today M25.561 - Pain in right knee, M25.562 - Pain in left knee
== END 2024-11-25 09:14 | disposition home or self-care (01) ==
PROVIDERS: PCP Internal Medicine; Visit Provider Internal Medicine
DX: E11.9 Type 2 diabetes mellitus without complications (principal); D64.9 Anemia, unspecified; E03.9 Hypothyroidism, unspecified; E55.9 Vitamin D deficiency, unspecified; M25.561 Pain in right knee; M25.562 Pain in left knee; R63.4 Abnormal weight loss

== ENCOUNTER → 2024-11-25 09:11 | Outpatient (BNV) | payer MEDICARE, SELFPAY | PROVIDERS: PCP Internal Medicine; Visit Provider Radiology Vascular & Interventional Radiology | DX: M25.561 Pain in right knee (principal) | CPT/HCPCS: 73565 ==

== ENCOUNTER 2025-01-11 09:25 | Outpatient (REF) | payer MEDICARE, SELFPAY ==
[2025-01-11 10:43] LABS: Baso%MD 0.7 %; Eos%MD 2.6 %; Hematocrit 35.8 % (37.0-47.0); Hemoglobin 11.3 g/dl (12.0-16.0); IG%MD 0.1 %; Lymph%MD 22.8 %; Mean Corpuscular HGB Conc 31.6 g/dl (31.0-35.0); Mean Corpuscular Volume 88.6 fL (80.0-98.0); Mean Platelet Volume 9.6 fL (9.4-12.3); Mono%MD 11.8 %; Platelet Count 356 X10*3/uL (160-400); Red Blood Count 4.04 X10*6/uL (4.20-5.50); Red Cell Distribution Width 13.2 % (11.0-16.0); White Blood Count 7.4 X10*3/uL (4.8-10.8)
[2025-01-11 11:17] LABS: Iron 38 mcg/dL (30-160); Percent Iron Saturation 18 % (15-50); Total Iron Binding Capacity 214 mcg/dL (228-428); Unsaturated Iron Binding 176 ug/dL
[2025-01-11 11:30] LABS: Atypical Lymph Absolute Manual 0.1 x10*3/uL; Atypical Lymphs Percent Manual 1 % (0-6); Band Neutrophils Percent 1 % (3-5); Eosinophils Absolute Manual 0.1 X10*3/uL (0.0-0.4); Eosinophils Percent Manual 1 % (0-4); Lymphocytes Absolute Manual 1.5 X10*3/uL (1.2-4.9); Lymphocytes Percent Manual 20 % (20-40); Monocytes Absolute Manual 0.7 X10*3/uL (0.1-1.2); Monocytes Percent Manual 9 % (2-11); Neutrophils Absolute Manual 5.1 X10*3/uL (2.0-8.3); Neutrophils Percent Manual 68 % (45-73)
[2025-01-11 11:37] LABS: Platelet Estimate NORMAL (NORMAL); Platelet Morphology Comment NORMAL; RBC Morphology NORMAL
== END 2025-01-11 09:26 | disposition home or self-care (01) ==
LOC: HO.HMGCLDS 09:25
PROVIDERS: PCP Internal Medicine; Visit Provider Internal Medicine
DX: D64.9 Anemia, unspecified (principal)
CPT/HCPCS: 36415; 83540; 85007; 85027

== ENCOUNTER 2025-01-12 08:40 | Outpatient (AMB) | payer MEDICARE, SELFPAY ==
[2025-01-12 08:46] VITALS: BP 120/66; PULSE 73; RESP 18; TEMP 36.6; O2SAT 100; BMI 19.0
--- NOTE | 2025-01-12 08:46 | A.OFFPC_ITS ---
Vital Signs 01/12/25 08:46 Height 5 ft 2 in Weight 104 lb BMI 19.0 BP 120/66 Blood Pressure Location Lt brachial Position Sitting Respiration 18 Pulse 73 Pulse Source Pulse Oximeter Temp 97.9 F Temp Source Oral Pulse Oximetry (%) 100 Oxygen Delivery Method Room Air Intake Visit Reasons: 5 months f/up Intake Note: Pt is here today for 5 months follow up visit. Allergies No Known Allergies Allergy (Verified 01/12/25 08:47) Medication List - Last Reconciled 01/12/25 by Claudia Earl MD atorvastatin 20 mg PO DAILY 90 days blood sugar diagnostic use 1 strip once a day to test blood sugar blood-glucose meter As directed lancets (BD Ultra Fine Lancets) QD levothyroxine 1 tab 6 days per week, 1.5 tab 1 day per week orally daily; metformin 500 mg PO DAILY valacyclovir (Valtrex) 1,000 mg PO Q8H Tobacco use date assessed: 01/12/25 Fall risk assessment: 1 Fall in past year Last assessed Fall Risk: 01/12/25 Dental Screening Dental Screen Date: 01/12/25 Did you have a dental visit in the last 12 months?: Yes Did you have a dental problem in the last 6 months where you did not have access to dental care?: No Was dental information given to patient?: Patient has dentist HPI 5 months f/up HPI Details Patient presents for the follow-up of type 2 diabetes hyperlipidemia hypothyroidism. She is concerned about 10 lb weight loss in the last 5 months. Patient denies change in appetite depression. Patient reports intermittent abdominal discomfort after eating but denies nausea vomiting hematochezia melena diarrhea or constipation. Patient has not been checking her blood glucose but has been following ADA diet. [facility], [facility] Medical History Skin growth Mammogram normal Osteopenia Hypothyroidism Hyperlipidemia Diabetes Diabetic eye exam FH: celiac disease Surgical History History of plastic surgery History of colonoscopy Family History Father Pancreatic cancer Mother Celiac disease COPD (chronic obstructive pulmonary disease) Brother No problems noted. Brother Celiac disease Social History Housing: House Patient Tobacco Use Status: Former Tobacco user e-Cigarette/Vaping Use: Never Used Second Hand Smoke Exposure: No service: No Current occupational status: retired Cognitive needs: No Hearing needs: No Vision needs: No Questionnaire Thrive Questionnaire Date Thrive assessed: 11/22/24 I am a: Patient What is your living situation today?: I have a steady place to live Within the past 12 months, did the food you bought not last and you didn't have the money to get more?: Never true Within the past 12 months, did you worry whether your food would run out before you got money to buy more?: Never true Do you have trouble paying for medicines?: No Do you have trouble getting transportation to medical appointments?: No Do you have trouble paying your heating and electricity bill?: No Do you have trouble taking care of your child, family member or friend?: No Do you have trouble with day-to-day activities such as bathing, preparing meals, shopping, managing finances, etc.?: No Are you currently unemployed and looking for a job?: No Are you interested in more education?: No Please select the resources that you would like help with: None Currently or been in a relationship where the following occur: I choose not to answer THRIVE Score: 0 AUDIT C Alcohol Use Questionnaire (AUDIT-C) 1. How often do you have a drink containing alcohol?: 2-3 times a week 2. How many drinks containing alcohol do you have on a typical day when you are drinking?: 1 or 2 3. How often do you have six or more drinks on one occasion?: Never Total Score: 3 ESA-7 AMB Questionnaire ESA-7 Date ESA - 7 assessed: 11/25/24 Becoming easily annoyed or irritable: 0 = Not at all Source: Developed by Drs. Keith Tan, Blanca Coleman, David Coleman and colleagues, with an educational tray from [employer]. Review of Systems Const All systems reviewed & are unremarkable except as noted in HPI and below Eyes Reports no additional complaints ENT Reports no additional complaints Card Reports no additional complaints Resp Reports no additional complaints GI Reports no additional complaints Reports no additional complaints Physical exam (Primary Care) Vital Signs: Last Vital Signs Temp 97.9 F 01/12/25 08:46 Pulse 73 01/12/25 08:46 Resp 18 01/12/25 08:46 BP 120/66 01/12/25 08:46 Pulse Ox 100 01/12/25 08:46 Oxygen Delivery Method Room Air 01/12/25 08:46 BMI result Body Mass Index 19.0 Tobacco/Smoking Status: Tobacco use Status Tobacco use date assessed 01/12/25 01/12/25 08:52 Patient Tobacco Use Status Former Tobacco user 01/12/25 08:52 e-Cigarette/Vaping Use Never Used 01/12/25 08:52 Thrive Assessment: Date of Thrive Assessment Date Thrive assessed 11/22/24 01/12/25 08:52 Currently or been in a relationship where the following occur: I choose not to answer Const General: no acute distress HENMT Head: Yes normal to inspection Ears: hearing grossly normal bilaterally Mouth: Normal oral and palatal mucosa present Eyes General: appearance normal, both eyes and all related structures Neck Neck: Yes no lymphadenopathy and Yes supple Resp Effort & Inspection: normal respiratory effort Auscultation: clear to auscultation bilaterally Cardio Rhythm: regular rhythm Heart sounds: S1 normal heart sound present and S2 normal heart sound present GI Inspection: Yes normal to inspection Palpation (GI): Soft to palpation Percussion: Yes normal to percussion Auscultation: normal bowel sounds Immunizations pneumoc 20-herb conj-dip cr(PF) 0.5 mL IM syringe Performing Provider: Claudia Earl MD Performing Location: [facility] Administered by: SAGRARIO Kidd on 01/12/25 09:20 Dose Route Admin Location Dispensed Lot Number Expiration Date [facility] Manager Hvac 0.5 mL IM Right Deltoid 0.5 mL [id number] 03/12/26 1341-5018-62 [employer]/PFI[employer]ER VIS Given Date VIS Provided VIS Publication Date 01/12/25 Single Vaccine 21 Eligibility Eligibility Date Funding Source Not [facility] Eligible 01/12/25 Private Coding Level of Care Code Est Pt Level 4 (77556) Diagnoses Anemia D64.9 Diabetes E11.9 Hypothyroidism E03.9 Weight loss R63.4 Assessment & Plan Assessment & Plan (1) Anemia: Comment: Normal iron studies, vitamin B12 08/2024 Code(s): D64.9 - Anemia, unspecified Category: Medical Plan: stable, nl Iron, check vit 12 (2) Diabetes: Comment: A1C goal less than 7.5 Code(s): E11.9 - Type 2 diabetes mellitus without complications Category: Medical Plan: A1c was 7.1, continue ADA diet metformin and regular physical activity (3) Hypothyroidism: Code(s): E03.9 - Hypothyroidism, unspecified Category: Medical Plan: Check TSH continue levothyroxine (4) Weight loss: Code(s): R63.4 - Abnormal weight loss Category: Medical Plan: For significant weight lost with intermittent abdominal pain CT of the abdomen and pelvis will be obtained to evaluate for diverticulitis or occult ca. Patient was advised to increase caloric intake she will follow-up in 1 month Orders: Orders Vitamin B12 and Folate Today D64.9 - Anemia, unspecified Hemoglobin A1c Today D64.9 - Anemia, unspecified Immunofixation Pnl, Serum Today D64.9 - Anemia, unspecified C Reactive Protein Today E03.9 - Hypothyroidism, unspecified, E11.9 - Type 2 diabetes mellitus without complications Basic Metabolic Panel Today E03.9 - Hypothyroidism, unspecified, E11.9 - Type [address] without complications CT abdomen pelvis w IV con Today K57.92 - Diverticulitis of intestine, part unspecified, without perforation or abscess without bleeding, R63.4 - Abnormal weight loss TSH reflex Free T4 Today D64.9 - Anemia, unspecified Immunoglobulins,IgG IgA IgM Today D64.9 - Anemia, unspecified Pneumococcal 20 Immunization Today Z23 - Encounter for immunization Medications: New pneumoc 20-herb conj-dip cr(PF) 0.5 mL IM ONCE 0.5 mL 0RF Z23 - Encounter for immunization
== END 2025-01-12 09:27 | disposition home or self-care (01) ==
LOC: HO.HMCC 08:41
PROVIDERS: PCP Internal Medicine; Visit Provider Internal Medicine
DX: D64.9 Anemia, unspecified (principal); E11.9 Type 2 diabetes mellitus without complications; E03.9 Hypothyroidism, unspecified; R63.4 Abnormal weight loss; Z23 Encounter for immunization

== ENCOUNTER 2025-01-12 08:40 | Outpatient (REF) | payer MEDICARE, SELFPAY ==
[2025-01-12 10:39] LABS: Estimated Average Glucose 160 mg/dL; Hemoglobin A1C 165.6771 umol/L; Hemoglobin A1c % 7.2 % (<6.0); Total Hemoglobin (HGBA1C) 3029.5483 umol/L
[2025-01-12 11:29] LABS: Anion Gap 13 (12-20); Blood Urea Nitrogen 17 mg/dL (9-16); C Reactive Protein 4.03 mg/dL (< or = 0.50); Calcium 9.4 mg/dL (8.4-10.2); Carbon Dioxide 27 mmol/L (22-29); Chloride 102 mmol/L (96-108); Estimated Glomerular Filt Rate > 60; Glucose Random 132 mg/dL (60-115); Potassium 3.7 mmol/L (3.3-5.1); Sodium 138 mmol/L (135-145)
[2025-01-12 11:40] LABS: TSH reflex Free T4 0.61 uIU/mL (0.32-4.0)
[2025-01-12 11:52] LABS: Folate 11.2 ng/mL (> or = 4.0); Vitamin B12 335 pg/mL (200-900)
[2025-01-14 16:44] LABS: IgA 673 mg/dL (70-320); IgG 1532 mg/dL (600-1540); IgM 147 mg/dL (50-300)
== END 2025-01-12 08:41 | disposition home or self-care (01) ==
LOC: HO.HMGCLDS 08:40
PROVIDERS: PCP Internal Medicine; Visit Provider Internal Medicine
DX: D64.9 Anemia, unspecified (principal); Z23 Encounter for immunization; E11.9 Type 2 diabetes mellitus without complications; E03.9 Hypothyroidism, unspecified; R63.4 Abnormal weight loss
CPT/HCPCS: 36415; 80048; 82607; 82746; 82784; 83036; 84443; 86140; 86334; 90471; 90677; 99212

== ENCOUNTER 2025-01-24 09:56 | Outpatient (REF) | payer MEDICARE, SELFPAY | END 2025-01-24 09:57 | disposition home or self-care (01) | LOC: HO.MAMMO 09:56 | PROVIDERS: PCP Internal Medicine; Visit Provider Internal Medicine | DX: Z12.31 Encounter for screening mammogram for malignant neoplasm of breast (principal) | CPT/HCPCS: 77063; 77067 ==

== ENCOUNTER → 2025-01-24 10:15 | Outpatient (BNV) | payer MEDICARE, SELFPAY | PROVIDERS: PCP Internal Medicine; Visit Provider Internal Medicine | DX: Z12.31 Encounter for screening mammogram for malignant neoplasm of breast (principal) | CPT/HCPCS: 77063; 77067 ==

== ENCOUNTER 2025-01-28 06:12 | Outpatient (REF) | payer MEDICARE, SELFPAY ==
--- NOTE | ~2025-01-28 | CT_ITS ---
EXAMINATION: CT ABDOMEN AND PELVIS WITH CONTRAST CLINICAL INFORMATION: Abnormal weight loss. COMPARISON: None available. TECHNIQUE: Multidetector volumetric images were obtained from the superior aspect of the liver through the pubic symphysis following administration 85 mL of Omnipaque 350 intravenous contrast. Sagittal and coronal reformatted images were obtained on the technologist's workstation. Oral contrast: Yes. [address] examination was performed using dose optimization techniques as appropriate, variously including the following: *Automated exposure control *Adjustment of mA and/or kV according to patient size (this includes techniques or standardized protocols for targeted exams where dose is matched to indication/reason for exam; i.e. extremities or head) *Use of iterative reconstruction technique. DLP: 177 mg centimeter. FINDINGS: Patient's breathing motion artifact. LUNG BASES: Linear and patchy pulmonary groundglass, lung bases and right middle lobe. LIVER, GALLBLADDER, AND BILIARY TREE: Liver measures 15 cm. No focal lesion. 2 mm hypodensity left hepatic lobe. Portal veins, hepatic veins and intrahepatic portion of the IVC are patent. Contracted gallbladder. No pericholecystic fluid collection or gallbladder wall thickening. No intrahepatic or extrahepatic biliary ductal dilatation. PANCREAS: Questionable 1.7 cm soft tissue fullness in the anterior inferior head of the pancreas. No main pancreatic ductal dilatation. No peripancreatic fluid collection. SPLEEN: 9 cm. No focal lesion. ADRENAL GLANDS: No nodular lesion. KIDNEYS AND URETERS: No gross renal mass. No hydronephrosis. No gross nephrolithiasis. Normal enhancement pattern of the renal parenchyma. Limited evaluation due to motion artifact. BLADDER: Fluid-filled nearly collapsed. GASTROINTESTINAL TRACT: Abundant stool within the large intestine. No intestinal obstruction pattern. No pneumatosis intestinalis. Appendix is normal. No pneumoperitoneum. No ascites. No peripheral enhancing fluid collection, peritoneal cavity. ABDOMINAL WALL: No gross umbilical hernia. LYMPH NODES: No gross lymphadenopathy, mesenteric or retroperitoneal. VASCULAR: Calcified plaques throughout the abdominal aorta wall, mesenteric arteries the origin of the main renal arteries celiac arteries and the coronary arteries as well as the descending thoracic aorta. Calcified mitral valve. No aneurysm or dissection, abdominal aorta. Retroaortic trajectory of the left main renal vein likely accessory vein. There is a left main renal vein anterior to the aorta. PELVIC VISCERA: No gross masses. OSSEOUS STRUCTURES: Large Schmorl node superior endplate of L5. Schmorl node inferior endplate of L2. Multilevel thoracolumbar spondylosis. No acute fracture or listhesis. No gross lytic or blastic lesions. Degenerative changes in the symphysis pubis and sacroiliac joints. CT/CT abdomen pelvis w IV con IMPRESSION: Questionable 1.7 cm soft tissue fullness/lesion, anterior inferior head of the pancreas. Fleischner guidelines were followed. Electronically signed by: Golden Kent MD 01/28/2025 09:39 AM EDT
[2025-01-28] MEDS: iohexoL 350 MG/ML 75 ML INFUS..BTL 85 ML IV (09:27)
[2025-01-28] MEDS: Barium Sulfate Oral (Mocha) 450 ML ORAL.SUSP 900 ML PO (09:28)
== END 2025-01-28 06:13 | disposition home or self-care (01) ==
LOC: HO.CT 06:12
PROVIDERS: PCP Internal Medicine; Visit Provider Internal Medicine
DX: R63.4 Abnormal weight loss (principal); K57.92 Diverticulitis of intestine, part unspecified, without perforation or abscess without bleeding
CPT/HCPCS: 74177; Q9967

== ENCOUNTER → 2025-01-28 06:14 | Outpatient (BNV) | payer MEDICARE, SELFPAY | PROVIDERS: PCP Internal Medicine; Visit Provider Radiology Diagnostic Radiology | DX: R63.4 Abnormal weight loss (principal) | CPT/HCPCS: 74177 ==

== ENCOUNTER 2025-01-31 07:26 | Outpatient (REF) | payer MEDICARE, SELFPAY ==
[2025-01-31 09:08] LABS: C Reactive Protein 3.71 mg/dL (< or = 0.50)
[2025-01-31 09:16] LABS: Erythrocyte Sedimentation Rate 58 MM/HR (0-20)
== END 2025-01-31 07:27 | disposition home or self-care (01) ==
LOC: HO.LAB 07:26
PROVIDERS: PCP Internal Medicine; Visit Provider Internal Medicine
DX: R63.4 Abnormal weight loss (principal)
CPT/HCPCS: 36415; 85652; 86140

== ENCOUNTER → 2025-02-07 08:30 | Outpatient (BNV) | payer MEDICARE, SELFPAY | PROVIDERS: PCP Internal Medicine; Visit Provider Radiology Diagnostic Radiology | DX: K86.2 Cyst of pancreas (principal) | CPT/HCPCS: 74183 ==

== ENCOUNTER 2025-02-07 08:33 | Outpatient (REF) | payer MEDICARE, SELFPAY ==
--- NOTE | ~2025-02-07 | MR_ITS ---
CLINICAL HISTORY: K86.89 - Other specified diseases of pancreas MR abdomen with and without contrast Comparison: None provided Findings: No signal abnormality of the lung bases. No gallstones. Mild thickening of the fundus of the gallbladder, measuring 4 mm which could be adenomyomatosis. No intrahepatic or extrahepatic biliary ductal dilatation. The common bile duct measures 6 mm. Mild dilation of the main pancreatic duct which measures up to 4 mm. Pancreatic cysts measure up to 5 mm. No parenchymal atrophy. No focal decreased enhancement of the pancreas on the arterial phase images. Bilateral renal parapelvic cysts, greater on the left. The other solid organs are unremarkable. No bowel wall thickening or dilation. No aneurysm. No lymphadenopathy. No ascites. No bone marrow edema. Impression: No identified pancreatic mass or other findings to explain the patient's presentation with sudden weight loss. Mild dilation of the main pancreatic duct. Pancreatic cysts measure up to 5 mm. Follow up as clinically indicated. An addendum can be provided if the CT from 01/28/25 is submitted for review. This document has been electronically signed by: Sussy Brown MD on 02/08/2025 22:28:45
[2025-02-07] MEDS: gadobutroL 7.5 ML VIAL IVPUSH (09:45)
== END 2025-02-07 08:34 | disposition home or self-care (01) ==
LOC: HO.MRI 08:33
PROVIDERS: PCP Internal Medicine; Visit Provider Internal Medicine
DX: K86.89 Other specified diseases of pancreas (principal)
CPT/HCPCS: 74183; A9585

== ENCOUNTER 2025-02-15 08:32 | Outpatient (REF) | payer MEDICARE, SELFPAY ==
[2025-02-15 08:56] LABS: MANUAL DIFF FLAG NO
[2025-02-15 09:25] LABS: Basophils Absolute Auto 0.1 X10*3/uL (0.0-0.2); Basophils Percent Auto 0.7 % (0-2); Eosinophils Absolute Auto 0.2 X10*3/uL (0.0-0.4); Eosinophils Percent Auto 2.7 % (0-4); Hematocrit 35.4 % (37.0-47.0); Hemoglobin 11.3 g/dl (12.0-16.0); Imm Gran Abs Auto 0.01 X10*3/uL (0.00-0.03); Imm Gran Pct Auto 0.1 % (0.0-0.4); Lymphocytes Absolute Auto 1.7 X10*3/uL (1.2-4.9); Lymphocytes Percent Auto 25.8 % (20-40); Mean Corpuscular HGB Conc 31.9 g/dl (31.0-35.0); Mean Corpuscular Hemoglobin 27.7 pg (27.0-33.0); Mean Corpuscular Volume 86.8 fL (80.0-98.0); Mean Platelet Volume 9.1 fL (9.4-12.3); Monocytes Absolute Auto 0.7 X10*3/uL (0.1-1.2); Neutrophils Percent Auto 60.7 % (45-73); Platelet Count 384 X10*3/uL (160-400); Red Blood Count 4.08 X10*6/uL (4.20-5.50); Red Cell Distribution Width 13.9 % (11.0-16.0); White Blood Count 6.7 X10*3/uL (4.8-10.8)
[2025-02-15 09:53] LABS: Alanine Aminotransferase 11 U/L (0-31); Alkaline Phosphatase 95 U/L (39-117); Anion Gap 13 (12-20); Aspartate Amino Transferase 19 U/L (5-31); Bilirubin Total 0.6 mg/dL (0.0-1.0); Blood Urea Nitrogen 20 mg/dL (9-16); C Reactive Protein 3.51 mg/dL (< or = 0.50); Calcium 9.1 mg/dL (8.4-10.2); Carbon Dioxide 27 mmol/L (22-29); Chloride 103 mmol/L (96-108); Estimated Glomerular Filt Rate > 60; Glucose Random 142 mg/dL (60-115); Potassium 4.1 mmol/L (3.3-5.1); Sodium 139 mmol/L (135-145); Total Protein 8.3 g/dL (6.5-8.0)
[2025-02-15 10:00] LABS: Erythrocyte Sedimentation Rate 55 MM/HR (0-20)
== END 2025-02-15 08:33 | disposition home or self-care (01) ==
LOC: HO.LAB 08:32
PROVIDERS: PCP Internal Medicine; Visit Provider Internal Medicine
DX: K86.89 Other specified diseases of pancreas (principal)
CPT/HCPCS: 36415; 80053; 85025; 85652; 86140

== ENCOUNTER 2025-02-16 09:02 | Outpatient (AMB) | payer MEDICARE, SELFPAY ==
--- NOTE | 2025-02-16 09:15 | A.OFFPC_ITS ---
Vital Signs 02/16/25 09:16 Height 5 ft 2 in Weight 105 lb BMI 19.2 BP 118/72 Blood Pressure Location Rt brachial Position Sitting Respiration 18 Pulse 72 Pulse Source Pulse Oximeter Temp 97.8 F Temp Source Oral Pulse Oximetry (%) 100 Oxygen Delivery Method Room Air Intake Visit Reasons: 1m f/u Intake Note: Pt is here today for 1 month follow up visit. Allergies No Known Allergies Allergy (Verified 02/16/25 09:21) Medication List - Last Reconciled 02/16/25 by Claudia Earl MD atorvastatin 20 mg PO DAILY 90 days blood sugar diagnostic use 1 strip once a day to test blood sugar blood-glucose meter As directed lancets (BD Ultra Fine Lancets) QD levothyroxine 1 tab 6 days per week, 1.5 tab 1 day per week orally daily; metformin 500 mg PO DAILY valacyclovir (Valtrex) 1,000 mg PO Q8H Tobacco use date assessed: 02/16/25 Fall risk assessment: No Falls in past year Last assessed Fall Risk: 02/16/25 Dental Screening Dental Screen Date: 01/12/25 HPI 1m f/u HPI Details Patient presents for the follow-up of type 2 diabetes hyperlipidemia and hypothyroidism. Patient has a increase protein intake and has not lost more weight. The CT of the abdomen and pelvis and MRI of the pancreas were negative. Patient denies myalgia fever chills night sweats. [facility] Medical History Weight loss Anemia Pancreatic mass Skin growth Mammogram normal Osteopenia Hypothyroidism Hyperlipidemia Diabetes Diabetic eye exam FH: celiac disease Surgical History History of plastic surgery History of colonoscopy Family History Father Pancreatic cancer Mother Celiac disease COPD (chronic obstructive pulmonary disease) Brother No problems noted. Brother Celiac disease Social History Housing: House Patient Tobacco Use Status: Former Tobacco user e-Cigarette/Vaping Use: Never Used Second Hand Smoke Exposure: No service: No Current occupational status: retired Cognitive needs: No Hearing needs: No Vision needs: No Questionnaire Thrive Questionnaire Date Thrive assessed: 11/22/24 I am a: Patient What is your living situation today?: I have a steady place to live Within the past 12 months, did the food you bought not last and you didn't have the money to get more?: Never true Within the past 12 months, did you worry whether your food would run out before you got money to buy more?: Never true Do you have trouble paying for medicines?: No Do you have trouble getting transportation to medical appointments?: No Do you have trouble paying your heating and electricity bill?: No Do you have trouble taking care of your child, family member or friend?: No Do you have trouble with day-to-day activities such as bathing, preparing meals, shopping, managing finances, etc.?: No Are you currently unemployed and looking for a job?: No Are you interested in more education?: No Please select the resources that you would like help with: None Currently or been in a relationship where the following occur: I choose not to answer THRIVE Score: 0 ESA-7 AMB Questionnaire ESA-7 Date ESA - 7 assessed: 11/25/24 Source: Developed by Drs. Keith Tan, Blanca Coleman, David Coleman and colleagues, with an educational tray from [employer]. Review of Systems Const All systems reviewed & are unremarkable except as noted in HPI and below ENT Reports no additional complaints Card Reports no additional complaints Resp Reports no additional complaints GI Reports no additional complaints Reports no additional complaints Physical exam (Primary Care) Vital Signs: Last Vital Signs Temp 97.8 F 02/16/25 09:16 Pulse 72 02/16/25 09:16 Resp 18 02/16/25 09:16 BP 118/72 02/16/25 09:16 Pulse Ox 100 02/16/25 09:16 Oxygen Delivery Method Room Air 02/16/25 09:16 BMI result Body Mass Index 19.2 Tobacco/Smoking Status: Tobacco use Status Tobacco use date assessed 02/16/25 02/16/25 09:21 Patient Tobacco Use Status Former Tobacco user 02/16/25 09:16 e-Cigarette/Vaping Use Never Used 02/16/25 09:16 Thrive Assessment: Date of Thrive Assessment Date Thrive assessed 11/22/24 02/16/25 09:16 Currently or been in a relationship where the following occur: I choose not to answer Const General: no acute distress Eyes General: appearance normal, both eyes and all related structures Resp Effort & Inspection: normal respiratory effort Auscultation: clear to auscultation bilaterally Cardio Rhythm: regular rhythm Heart sounds: S1 normal heart sound present and S2 normal heart sound present GI Inspection: Yes normal to inspection Palpation (GI): Soft to palpation Percussion: Yes normal to percussion Auscultation: normal bowel sounds Coding Level of Care Code Est Pt Level 4 (43420) Diagnoses Diabetes E11.9 Hypothyroidism E03.9 Hyperlipidemia E78.5 Assessment & Plan Assessment & Plan (1) Diabetes: Comment: A1C goal less than 7.5 Code(s): E11.9 - Type 2 diabetes mellitus without complications Category: Medical Plan: Continue ADA diet metformin follow-up in 2 months with a fasting labs before (2) Hypothyroidism: Code(s): E03.9 - Hypothyroidism, unspecified Category: Medical Plan: Continue levothyroxine (3) Hyperlipidemia: Code(s): E78.5 - Hyperlipidemia, unspecified Category: Medical Plan: Continue statin Orders: Orders Comprehensive [place]. Panel Fast 2 Months E03.9 - Hypothyroidism, unspecified, E11.9 - Type 2 diabetes mellitus without complications, E78.5 - Hyperlipidemia, unspecified Complete Blood Count Auto Diff 2 Months E03.9 - Hypothyroidism, unspecified, E11.9 - Type 2 diabetes mellitus without complications, E78.5 - Hyperlipidemia, unspecified Hemoglobin A1c 2 Months E03.9 - Hypothyroidism, unspecified, E11.9 - Type 2 diabetes mellitus without complications, E78.5 - Hyperlipidemia, unspecified Lipid Panel 2 Months E03.9 - Hypothyroidism, unspecified, E11.9 - Type 2 diabetes mellitus without complications, E78.5 - Hyperlipidemia, unspecified TSH reflex Free T4 2 Months E03.9 - Hypothyroidism, unspecified, E11.9 - Type 2 diabetes mellitus without complications, E78.5 - Hyperlipidemia, unspecified Microalbumin, Random (w Creat) 2 Months E03.9 - Hypothyroidism, unspecified, E11.9 - Type 2 diabetes mellitus without complications, E78.5 - Hyperlipidemia, unspecified
[2025-02-16 09:16] VITALS: BP 118/72; PULSE 72; RESP 18; TEMP 36.6; O2SAT 100; BMI 19.2
== END 2025-02-16 10:22 | disposition home or self-care (01) ==
LOC: HO.HMCC 09:03
PROVIDERS: PCP Internal Medicine; Visit Provider Internal Medicine
DX: E11.9 Type 2 diabetes mellitus without complications (principal); E03.9 Hypothyroidism, unspecified; E78.5 Hyperlipidemia, unspecified

== ENCOUNTER → 2025-02-16 09:02 | Outpatient (BNVA) | payer MEDICARE, SELFPAY | PROVIDERS: PCP Internal Medicine; Visit Provider Internal Medicine | DX: E11.9 Type 2 diabetes mellitus without complications (principal); E03.9 Hypothyroidism, unspecified; E78.5 Hyperlipidemia, unspecified | CPT/HCPCS: 99212 ==

== ENCOUNTER 2025-04-12 10:42 | Outpatient (AMB) | payer MEDICARE, SELFPAY ==
[2025-04-12 10:48] VITALS: BP 110/66; PULSE 76; RESP 18; TEMP 36.8; O2SAT 95; BMI 19.4
--- NOTE | 2025-04-12 10:48 | A.OFFPC_ITS ---
Vital Signs 04/12/25 10:48 Height 5 ft 2 in Weight 106 lb BMI 19.4 BP 110/66 Blood Pressure Location Lt brachial Position Sitting Respiration 18 Pulse 76 Pulse Source Pulse Oximeter Temp 98.3 F Temp Source Oral Pulse Oximetry (%) 95 Oxygen Delivery Method Room Air Intake Visit Reasons: Follow up discuss some concerns Intake Note: Pt is here today for a follow up visit. Allergies No Known Allergies Allergy (Verified 04/12/25 10:52) Medication List - Last Reconciled 04/12/25 by Claudia Earl MD atorvastatin 20 mg PO DAILY 90 days blood sugar diagnostic use 1 strip once a day to test blood sugar blood-glucose meter As directed lancets (BD Ultra Fine Lancets) QD levothyroxine 1 tab 6 days per week, 1.5 tab 1 day per week orally daily; metformin 500 mg PO DAILY valacyclovir (Valtrex) 1,000 mg PO Q8H Tobacco use date assessed: 04/12/25 Fall risk assessment: No Falls in past year Last assessed Fall Risk: 04/12/25 Dental Screening Dental Screen Date: 01/12/25 HPI Follow up discuss some concerns HPI Details Patient presents for the follow-up of hypothyroidism, type 2 diabetes and hyperlipidemia. Patient complains of bilateral knees pain and stiffness when starting to walk. The pain is better once patient walks. She has been working out at the gym 4 times a week. Patient denies joint swelling erythema or warmth or pain at night. [facility] Medical History Weight loss Anemia Pancreatic mass Skin growth Mammogram normal Osteopenia Hypothyroidism Hyperlipidemia Diabetes Diabetic eye exam FH: celiac disease Surgical History History of plastic surgery History of colonoscopy Family History Father Pancreatic cancer Mother Celiac disease COPD (chronic obstructive pulmonary disease) Brother No problems noted. Brother Celiac disease Social History Housing: House Patient Tobacco Use Status: Former Tobacco user e-Cigarette/Vaping Use: Never Used Second Hand Smoke Exposure: No service: No Current occupational status: retired Cognitive needs: No Hearing needs: No Vision needs: No Questionnaire Thrive Questionnaire Date Thrive assessed: 11/22/24 I am a: Patient What is your living situation today?: I have a steady place to live Within the past 12 months, did the food you bought not last and you didn't have the money to get more?: Never true Within the past 12 months, did you worry whether your food would run out before you got money to buy more?: Never true Do you have trouble paying for medicines?: No Do you have trouble getting transportation to medical appointments?: No Do you have trouble paying your heating and electricity bill?: No Do you have trouble taking care of your child, family member or friend?: No Do you have trouble with day-to-day activities such as bathing, preparing meals, shopping, managing finances, etc.?: No Are you currently unemployed and looking for a job?: No Are you interested in more education?: No Please select the resources that you would like help with: None Currently or been in a relationship where the following occur: I choose not to answer THRIVE Score: 0 ESA-7 AMB Questionnaire ESA-7 Date ESA - 7 assessed: 11/25/24 Source: Developed by Drs. Keith Tan, Blanca Coleman, David Coleman and colleagues, with an educational tray from [employer]. Review of Systems Const All systems reviewed & are unremarkable except as noted in HPI and below Eyes Reports no additional complaints ENT Reports no additional complaints Card Reports no additional complaints Resp Reports no additional complaints GI Reports no additional complaints Physical exam (Primary Care) Vital Signs: Last Vital Signs Temp 98.3 F 04/12/25 10:48 Pulse 76 04/12/25 10:48 Resp 18 04/12/25 10:48 BP 110/66 04/12/25 10:48 Pulse Ox 95 04/12/25 10:48 Oxygen Delivery Method Room Air 04/12/25 10:48 BMI result Body Mass Index 19.4 Tobacco/Smoking Status: Tobacco use Status Tobacco use date assessed 04/12/25 04/12/25 10:55 Patient Tobacco Use Status Former Tobacco user 04/12/25 10:55 e-Cigarette/Vaping Use Never Used 04/12/25 10:55 Thrive Assessment: Date of Thrive Assessment Date Thrive assessed 11/22/24 04/12/25 10:55 Currently or been in a relationship where the following occur: I choose not to answer Const General: no acute distress HENMT Head: Yes normal to inspection Eyes General: appearance normal, both eyes and all related structures Neck Neck: Yes supple Resp Effort & Inspection: normal respiratory effort Auscultation: clear to auscultation bilaterally Cardio Rhythm: regular rhythm Heart sounds: S1 normal heart sound present and S2 normal heart sound present Extrem Other: Slightly decreased range of motion and crepitus of both knees, no soft tissue swelling erythema or warmth no joint tenderness Coding Level of Care Code Est Pt Level 4 (67008) Diagnoses Knee pain, bilateral M25.561; M25.562 Hyperlipidemia E78.5 Diabetes E11.9 Hypothyroidism E03.9 Assessment & Plan Assessment & Plan (1) Knee pain, bilateral: Comment: XR moderate osteoarthritis bilaterally 11/2024 Code(s): M25.561 - Pain in right knee; M25.562 - Pain in left knee Category: Medical Plan: Patient was advised to continue regular physical activity. If the symptoms become worse she can follow-up with orthopedic surgeon (2) Hyperlipidemia: Code(s): E78.5 - Hyperlipidemia, unspecified Category: Medical Plan: Continue statin return for fasting blood work (3) Diabetes: Comment: A1C goal less than 7.5 Code(s): E11.9 - Type 2 diabetes mellitus without complications Category: Medical Plan: ADA diet regular exercise discussed with the patient continue metformin check A1c (4) Hypothyroidism: Code(s): E03.9 - Hypothyroidism, unspecified Category: Medical Plan: Continue levothyroxine follow-up in 4 months Orders: Orders Hemoglobin A1c 4 Months E03.9 - Hypothyroidism, unspecified, E11.9 - Type 2 diabetes mellitus without complications, E78.5 - Hyperlipidemia, unspecified Comprehensive Met. Panel 4 Months E03.9 - Hypothyroidism, unspecified, E11.9 - Type 2 diabetes mellitus without complications, E78.5 - Hyperlipidemia, unspecified TSH reflex Free T4 4 Months E03.9 - Hypothyroidism, unspecified, E11.9 - Type 2 diabetes mellitus without complications, E78.5 - Hyperlipidemia, unspecified
== END 2025-04-12 11:23 | disposition home or self-care (01) ==
LOC: HO.HMCC 10:43
PROVIDERS: PCP Internal Medicine; Visit Provider Internal Medicine
DX: M25.561 Pain in right knee (principal); M25.562 Pain in left knee; E78.5 Hyperlipidemia, unspecified; E11.9 Type 2 diabetes mellitus without complications; E03.9 Hypothyroidism, unspecified

== ENCOUNTER → 2025-04-12 10:42 | Outpatient (BNVA) | payer MEDICARE, SELFPAY | PROVIDERS: PCP Internal Medicine; Visit Provider Internal Medicine | DX: M25.561 Pain in right knee (principal); M25.562 Pain in left knee; E78.5 Hyperlipidemia, unspecified; E11.9 Type 2 diabetes mellitus without complications; E03.9 Hypothyroidism, unspecified | CPT/HCPCS: 99212 ==

== ENCOUNTER 2025-04-19 07:48 | Outpatient (REF) | payer MEDICARE, SELFPAY ==
[2025-04-19 07:58] LABS: MANUAL DIFF FLAG NO
[2025-04-19 08:35] LABS: Hematocrit 34.3 % (37.0-47.0); Hemoglobin 10.9 g/dl (12.0-16.0); Imm Gran Abs Auto 0.02 X10*3/uL (0.00-0.03); Imm Gran Pct Auto 0.3 % (0.0-0.4); Lymphocytes Absolute Auto 1.9 X10*3/uL (1.2-4.9); Mean Corpuscular HGB Conc 31.8 g/dl (31.0-35.0); Mean Corpuscular Hemoglobin 27.9 pg (27.0-33.0); Mean Corpuscular Volume 87.7 fL (80.0-98.0); NRBC Abs Auto 0.000 X10*3/uL (0.0-0.012); NRBC Pct Auto 0.0 /100WBC (0.0-0.2); Platelet Count 366 X10*3/uL (160-400); Red Blood Count 3.91 X10*6/uL (4.20-5.50); White Blood Count 7.2 X10*3/uL (4.8-10.8)
[2025-04-19 08:40] LABS: Hemoglobin A1C 172.6161 umol/L; Total Hemoglobin (HGBA1C) 2919.0837 umol/L
[2025-04-19 09:07] LABS: Alanine Aminotransferase 7 U/L (0-31); Albumin Level 3.9 g/dL (3.5-5.0); Alkaline Phosphatase 85 U/L (39-117); Anion Gap 12 (12-20); Aspartate Amino Transferase 16 U/L (5-31); Blood Urea Nitrogen 12 mg/dL (9-16); Calcium 9.0 mg/dL (8.4-10.2); Carbon Dioxide 29 mmol/L (22-29); Chloride 103 mmol/L (96-108); Cholesterol 140 mg/dL (<200); Estimated Glomerular Filt Rate > 60; HDL Cholesterol 61 mg/dL (>40); Potassium 4.1 mmol/L (3.3-5.1); Sodium 140 mmol/L (135-145); Total Protein 7.8 g/dL (6.5-8.0); Triglycerides 59 mg/dL (<150)
[2025-04-19 09:39] LABS: Microalbum/Creatinine Ratio Ur 27.9 ug/mg cr (<30)
[2025-04-19 10:22] LABS: Free T4 (Free Thyroxine) 0.79 ng/dL (0.71-1.85)
== END 2025-04-19 07:49 | disposition home or self-care (01) ==
LOC: HO.LAB 07:48
PROVIDERS: PCP Internal Medicine; Visit Provider Internal Medicine
DX: E11.9 Type 2 diabetes mellitus without complications (principal); E03.9 Hypothyroidism, unspecified; E78.5 Hyperlipidemia, unspecified
CPT/HCPCS: 36415; 80053; 80061; 82043; 82570; 83036; 84439; 84443; 85025

== ENCOUNTER 2025-08-12 09:14 | Outpatient (REF) | payer MEDICARE, SELFPAY ==
--- OUTSIDE RECORDS SUMMARY | 2023-03-14 13:50 | XMS_ITS | Encounter Summary ---
Author Organization [facility] Address [address] [place] [address] Phone Care Team Providers Care Insurance Billing Clerk Name Role Phone Claudia Earl MD Primary Care Provider [phone] Encounter Details Date Type Department Care Team (Late st Contact Info) Description 03/14/2023 1:50 PM EDT Hospital Encounter [facility] [address] [place] [phone] Eva Akins CNP [address] [place] [address] [email or web address] Social History Tobacco Use Types Packs/Day Years [...] created by Gonsalo Sánchez. us Eva Akins [employer]IVERSAL BANKER IMG XR HEAD AND SHUNT SERIE S Final Result documented in this encounter Visit Diagnoses Not on filedocumented in this encounter Care Teams Insurance Billing Clerk Relationship Specialty Start Date End Date Claudia Earl MD [facility] [place] [address] PCP - General Internal Medicine 05/07/22 documented as of this encounter Additional Source Comments The information contained in this document represents components of the legal health record. It is not the complete legal health record.[facility]
--- OUTSIDE RECORDS SUMMARY | 2024-03-15 08:15 | XMS_ITS | Encounter Summary ---
Author Organization [facility] Address [address] [place] [address] Phone Care Team Providers Care Load Out Supervisor Name Role Phone Claudia Earl MD Primary Care Provider [phone] Encounter Details Date Type Department Care Team (Late st Contact Info) Description 03/15/2024 8:15 AM EDT Hospital Encounter [facility] [address] [place] [phone] Eva Akins CNP [address] [place] [phone] [email or web address] Social History Tobacco Use Types Packs/Day Years [...] clinician's provided indication for this examination in [facility]: Trauma; fell on outstretched arm 03/12 swelling, [...] clinician's provided indication for this examination in [facility]:Trauma; fell on outstretched arm 03/12 swelling, decreased [...] a nondisplaced ulnar styloid fracture Eva Akins PHOTOGRAPHS CURATOR IMG XR UPPER EXTREMITY Karen l Result documented in this encounter Visit Diagnoses Not on filedocumented in this encounter Care Teams Load Out Supervisor Relationship Specialty Start Date End Date Claudia Earl MD [address] [place], [place] [phone] PCP - General Internal Medicine 05/07/22 documented as of this encounter Additional Source Comments The information contained in this document represents components of the legal health record. It is not the complete legal health record.[facility]
--- OUTSIDE RECORDS SUMMARY | 2024-03-15 08:15 | XMS_ITS | Encounter Summary ---
Author Organization [facility] Address [address] [place] [address] Phone Care Team Providers Care Manager Post Name Role Phone Claudia Earl MD Primary Care Provider [phone] Encounter Details Date Type Department Care Team (Late st Contact Info) Description 03/15/2024 8:15 AM EDT Hospital Encounter [facility] [address] [place] [id number] Eva Akins CNP [address] [place] [place] [id number] Social History Tobacco Use Types Packs/Day Years [...] clinician's provided indication for this examination in [facility]: Trauma; fell on outstretched arm 03/12 [...] clinician's provided indication for this examination in [facility]:Trauma; fell on outstretched arm 03/12 swelling, [...] a nondisplaced ulnar styloid fracture Eva Akins [employer] XR UPPER EXTREMITY Karen l Result documented in this encounter Visit Diagnoses Not on filedocumented in this encounter Care Teams Manager Post Relationship Specialty Start Date End Date Claudia Earl MD [address] [place] [id number] PCP - General Internal Medicine 05/07/22 documented as of this encounter Additional Source Comments The information contained in this document represents components of the legal health record. It is not the complete legal health record.[facility]
--- OUTSIDE RECORDS SUMMARY | 2025-08-12 10:10 | XMS_ITS | Clinical Summary ---
Author Organization [facility] Address [address] [place] [address] Phone Care Team Providers Care Admeasurer Name Role Phone Claudia Earl MD Primary Care Provider [phone] Allergies No known active allergies Medications atorvastatin (LIPITOR) 20 MG tablet Take 20 mg by mouth daily. 04/09/2022 Active levothyroxine (SYNTHROID, LEVOTHROID) 100 MCG tablet Take 100 mcg by mouth daily. 04/11/2022 Active metFORMIN (GLUCOPHAGE) 500 MG tablet 07/02/2022 Active minoxidiL (LONITEN) 2.5 MG tablet TAKE 1/2 A TABLET DAILY FOR HAIR LOSS 02/04/2023 Active Active Problems Problem Noted Date Diagnosed Date Epidermal inclusion cyst 08/14/2022 Immunizations Immunization Administration Dates Next Due INFLUENZA, SPLIT VIRUS, TRIV ALENT W/ PRESERVATIVE IM 08/09/2016,06/13/2015 Influenza High-Dose Trivalen t Preservative Free IM 06/17/2018 Influenza Quadrivalent Preservative Free IM 10/04/2020,07/21/2019,07/24/2018 Influenza Quadrivalent w/ Preservative IM 2016,12/31/2016 Tdap 02/02/2018 Family History Medical History Relation Comments Pancreatic cancer Father Relation Status Comments Father Mother Social History Tobacco Use Types Packs/Day Years Used Date Smoking Tobacco: Never Smokeless Tobacco: Never Tobacco Cessation:Counseling Given: Not Answered Alcohol Use Standard Drinks/Week Comments Never 0 [...] on file Sexual Orientation Not on file Last Filed Vital Signs Vital Sign Reading Time Taken Comments Blood Pressure 160/75 03/18/2024 12:34 PM EDT Pulse 67 03/18/2024 12:34 PM EDT Temperature 36.9 C (98.5 F) 03/18/2024 12:34 PM EDT Respiratory Rate 18 03/18/2024 12:34 PM EDT Oxygen Saturation 97% 03/18/2024 12:34 PM EDT Inhaled Oxygen Concentration - - Weight 51.3 kg (113 lb) 03/18/2024 12:34 PM EDT Height 157.5 cm (5' 2 ) 03/18/2024 12:34 PM EDT Body Mass Index 20.67 03/18/2024 12:34 PM EDT Plan of Treatment Health Maintenance Due Date Last Done Comments CREATININE LEVEL 1943 TSH LEVEL 1943 DEPRESSION SCREENING 1955 PNEUMOCOCCAL VACCINES (50+ years) (1 of 1 - PCV) 1993 ZOSTER VACCINES (1 of 2) 1993 OSTEOPOROSIS SCREENING INITIAL (ONE-TIME) 02/11/2008 RSV VACCINE (1 - 1-dose 75+ series) 2018 INFLUENZA VACCINE (#1) 2025 , 07/21/2019, 07/24/2018, Additional history exists COVID-19 VACCINE (2 - 2024- season) 2025 03/16/2021 Adult Td,Tdap Booster 02/03/2028 02/02/2018 HEPATITIS A VACCINES Aged Out No long er eligible based on patient's age to complete this topic HIB VACCINES Aged Out No longer eligi ble based on patient's age to complete this topic MENINGOCOCCAL VACCINES (ACWY) Aged Out No longer eligible based on patient's age to complete this topic MENINGOCOCCAL VACCINES (B) Aged Out N o longer eligible based on patient's age to complete this topic Medical Devices Not on file Insurance MEDICARE PART A & B [facility] MEDEX SUPPLEMENT MEDICARE PART A & B [employer] MEDEX SUPPLEMENT MEDICARE PART A & B [employer] MED[employer] SUPPLEMENT MEDICARE PART A & B [employer] MED[employer] SUPPLEMENT MEDICARE PART A & B [employer] SUPPLEMENT MEDICARE PART A & B [employer] SUPPLEMENT MEDICARE PART A & B [employer] SUPPLEMENT MEDICARE PART A & B [employer] SUPPLEMENT MEDICARE PART A & B [employer] MEDEX SUPPLEMENT Care Teams Admeasurer Relationship Specialty Start Date End Date Claudia Earl MD [address] [place] [address] PCP - General Internal Medicine 05/07/22 Additional Source Comments The information contained in this document represents components of the legal health record. It is not the complete legal health record.[facility]
[2025-08-12 11:00] LABS: Alanine Aminotransferase 12 U/L (0-31); Albumin Level 4.2 g/dL (3.5-5.0); Alkaline Phosphatase 83 U/L (39-117); Anion Gap 11 (12-20); Aspartate Amino Transferase 20 U/L (5-31); Blood Urea Nitrogen 11 mg/dL (9-16); Calcium 9.0 mg/dL (8.4-10.2); Carbon Dioxide 28 mmol/L (22-29); Chloride 106 mmol/L (96-108); Estimated Glomerular Filt Rate > 60; Potassium 3.6 mmol/L (3.3-5.1); Sodium 141 mmol/L (135-145); Total Protein 7.4 g/dL (6.5-8.0)
[2025-08-12 12:17] LABS: Free T4 (Free Thyroxine) 0.79 ng/dL (0.71-1.85)
== END 2025-08-12 09:15 | disposition home or self-care (01) ==
LOC: HO.LAB 09:14
PROVIDERS: PCP Internal Medicine; Visit Provider Internal Medicine
DX: E11.9 Type 2 diabetes mellitus without complications (principal); E03.9 Hypothyroidism, unspecified; E78.5 Hyperlipidemia, unspecified
CPT/HCPCS: 36415; 80053; 83036; 84439; 84443

== ENCOUNTER 2025-08-16 09:36 | Outpatient (AMB) | payer MEDICARE, SELFPAY ==
--- OUTSIDE RECORDS SUMMARY | 2023-03-14 12:50 | XMS_ITS | Encounter Summary ---
Author Organization [facility] Address [address] [place] [address] Phone Care Team Providers Care Wall Attendant Name Role Phone Claudia Earl MD Primary Care Provider [phone] Encounter Details Date Type Department Care Team (Late st Contact Info) Description 03/14/2023 1:50 PM EDT Hospital Encounter [facility] [address] [place] [id number] Eva Akins CNP [address] [place] [address] Social History Tobacco Use Types Packs/Day Years Used Date Smoking Tobacco: Never Smokeless Tobacco: Never Alcohol Use Standard Drinks/Week Comments Never 0 (1 standard drink = 0.6 oz pur e alcohol) Education Answer Date Recorded Are you interested in more education? Not on gia e 02/08/2023 Are you concerned about learning? Not on file 02/08/2023 No 02/08/2023 No 02/08/2023 Digital Access Answer Date Recorded No 03/09/2023 No 03/09/2023 Reliable internet access at home? Not on file 03/09/2023 Device with a working camera? Not on file Comments Unknown Sex and Gender Information Value Date Recorded Sex Assigned at Not on file Legal Sex Female 12:23 PM EDT Gender Identity Not on file Sexual Orientation Not on file documented as of this encounter Plan of Treatment Not on file documented as of this encounter Procedures Procedure Name Priority Date/Time Associated Diagnosis Comments XR ORBITS SERIES Urgent/patient waiting 03/14/2023 2:03 PM EDT Fall as cause of accidental injury in home as place of occurrence, initial encounter documented in this encounter Results * XR Orbits Series (03/14/2023 2:03 PM EDT) Anatomical Region Laterality Modality Face Computed Radiogr aphy 03/14/2023 2:04 PM EDT Impressions 03/14/2023 2:45 PM EDT No radiopaque metallic foreign body overlying the orbits. ATTESTATION: Marietta Weinstein as teaching physician, have reviewed the images for this case and if necessary edited the report originally created by Gonsalo Sánchez. Narrative 03/14/2023 2:45 PM EDT XR ORBITS SERIES COMPARISON: None. FINDINGS: No radiopaque metallic foreign body is seen overlying the orbits. On the first frontal view, overlying metallic device is no longer visualized on the second view obtained. Procedure Note Shital Linder MD - 03/14/2023 XR ORBITS SERIES COMPARISON: None. FINDINGS: No radiopaque metallic foreign body is seen overlying the orbits. On thefirst frontal view, overlying metallic device is no longer visualized onthe second view obtained. IMPRESSION: No radiopaque metallic foreign body overlying the orbits. ATTESTATION: Marietta Weinstein as teaching physician, havereviewed the images for this case and if necessary edited the reportoriginally created by Gonsalo Sánchez. us Eva Akins SHADING PAINTER IMG XR HEAD AND SHUNT SERIE S Final Result documented in this encounter Visit Diagnoses Not on filedocumented in this encounter Care Teams Wall Attendant Relationship Specialty Start Date End Date Claudia Earl MD [facility] [place] [address] PCP - General Internal Medicine 05/07/22 documented as of this encounter Additional Source Comments The information contained in this document represents components of the legal health record. It is not the complete legal health record.[facility]
--- OUTSIDE RECORDS SUMMARY | 2024-03-15 07:15 | XMS_ITS | Encounter Summary ---
Author Organization [facility] Address [address] [place] [address] Phone Care Team Providers Care Smoke And Flame Specialist Name Role Phone Claudia Earl MD Primary Care Provider [phone] Encounter Details Date Type Department Care Team (Late st Contact Info) Description 03/15/2024 8:15 AM EDT Hospital Encounter [facility] [address] [place] [id number] Eva Akins CNP [address] [place] [id number] [email or web address] Social History Tobacco Use Types Packs/Day Years [...] Name Priority Date/Time Associated Diagnosis Comments XR FOREARM 2 VIEWS (LEFT) Urgent/patient waiting 03/15/2024 8:21 AM EDT Fall as cause of accidental injury in home as place of occurrence, initial encounter documented in this encounter Results * XR Forearm 2 Views (Left) (03/15/2024 8:21 AM EDT) Anatomical Region Laterality Modality Forearm Left Computed Radiogr aphy 03/15/2024 9:03 AM EDT Impressions 03/15/2024 9:06 AM EDT Acute minimally displaced intra-articular fracture of the distal left radius and a nondisplaced ulnar styloid fracture Narrative 03/15/2024 9:06 AM EDT XR WRIST 3 OR MORE VIEWS (LEFT), XR FOREARM 2 VIEWS (LEFT) Referring clinician's provided indication for this examination in [facility]: Trauma; fell on outstretched arm 03/12 swelling, decreased ROM COMPARISON: None FINDINGS: The bones are diffusely demineralized. There is an acute minimally displaced intra-articular fracture of the distal left radius with minimal apex anterior angulation. Additionally, there is a nondisplaced fracture of the ulnar styloid. There are severe degenerative changes of the first carpal metacarpal joints and to a lesser extent the triscaphe E and radiocarpal joints. A focal mineralization distal to the ulna may reflect chondrocalcinosis. Procedure Note Pricila Watkins MD - 03/15/2024 XR WRIST 3 OR MORE VIEWS (LEFT), XR FOREARM 2 VIEWS (LEFT) Referring clinician's provided indication for this examination in [facility]:Trauma; fell on outstretched arm 03/12 swelling, decreased ROM COMPARISON: None FINDINGS: The bones are diffusely demineralized. There is an acute minimallydisplaced intra-articular fracture of the distal left radius with minimalapex anterior angulation. Additionally, there is a nondisplaced fractureof the ulnar styloid. There are severe degenerative changes of the first carpal metacarpaljoints and to a lesser extent the triscaphe E and radiocarpal joints. Afocal mineralization distal to the ulna may reflect chondrocalcinosis. IMPRESSION: Acute minimally displaced intra-articular fracture of the distal leftradius and a nondisplaced ulnar styloid fracture Eva Akins LIME HIDE INSPECTOR IMG XR UPPER EXTREMITY Karen l Result documented in this encounter Visit Diagnoses Not on filedocumented in this encounter Care Teams Smoke And Flame Specialist Relationship Specialty Start Date End Date Claudia Earl MD [address] [place] [id number] PCP - General Internal Medicine 05/07/22 documented as of this encounter Additional Source Comments The information contained in this document represents components of the legal health record. It is not the complete legal health record.[facility]
--- OUTSIDE RECORDS SUMMARY | 2024-03-15 07:15 | XMS_ITS | Encounter Summary ---
Author Organization [facility] Address [address] [place] [address] Phone Care Team Providers Care Cost Accountant Name Role Phone Claudia Earl MD Primary Care Provider [phone] Encounter Details Date Type Department Care Team (Late st Contact Info) Description 03/15/2024 8:15 AM EDT Hospital Encounter [facility] [address] [place] [phone] Eva Akins CNP [address] [place] [phone] Social History Tobacco Use Types Packs/Day Years [...] Name Priority Date/Time Associated Diagnosis Comments XR WRIST 3 OR MORE VIEWS (LEFT) Urgent/patient waiting 03/15/2024 8:22 AM EDT Acute pain of left wrist documented in this encounter Results * XR WRIST 3 OR MORE VIEWS (LEFT) (03/15/2024 8:22 AM EDT) Anatomical Region Laterality Modality Wrist Left Computed Radiogr aphy 03/15/2024 9:03 AM EDT Impressions 03/15/2024 9:06 AM EDT Acute minimally displaced intra-articular fracture of the distal left radius and a nondisplaced ulnar styloid fracture Narrative 03/15/2024 9:06 AM EDT XR WRIST 3 OR MORE VIEWS (LEFT), XR FOREARM 2 VIEWS (LEFT) Referring clinician's provided indication for this examination in [facility]: Trauma; fell on outstretched arm 03/12 [...] clinician's provided indication for this examination in [facility]:Trauma; fell on outstretched arm 03/12 swelling, [...] a nondisplaced ulnar styloid fracture Eva Akins CITIZENSHIP INSTRUCTOR IMG XR UPPER EXTREMITY Karen l Result documented in this encounter Visit Diagnoses Not on filedocumented in this encounter Care Teams Cost Accountant Relationship Specialty Start Date End Date Claudia Earl MD [address] [place], [place] [phone] PCP - General Internal Medicine 05/07/22 documented as of this encounter Additional Source Comments The information contained in this document represents components of the legal health record. It is not the complete legal health record.[facility]
--- NOTE | 2025-08-16 09:57 | MHC.PC.OV ---
Vital Signs 08/16/25 10:01 Height 5 ft 2 in Weight 107 lb BMI 19.6 BP 130/66 Blood Pressure Location Lt brachial Position Sitting Respiration 16 Pulse 63 Pulse Source Pulse Oximeter Temp 97.9 F Temp Source Oral Pulse Oximetry (%) 97 Oxygen Delivery Method Room Air Intake Visit Reasons: 4 months f/up Intake Note: Pt is here today for 4 months follow up visit. Allergies No Known Allergies Allergy (Verified 08/16/25 10:03) Medication List - Last Reconciled 08/16/25 by Claudia Earl MD atorvastatin 20 mg PO DAILY 90 days blood sugar diagnostic use 1 strip once a day to test blood sugar blood-glucose meter As directed lancets (BD Ultra Fine Lancets) QD levothyroxine 1 tab 6 days per week, 1.5 tab 1 day per week orally daily; metformin 500 mg PO DAILY valacyclovir (Valtrex) 1,000 mg PO Q8H Tobacco use date assessed: 08/16/25 Fall risk assessment: No Falls in past year Last assessed Fall Risk: 08/16/25 Dental Screening Dental Screen Date: 01/12/25 HPI 4 months f/up HPI Details Patient presents for the follow-up type 2 diabetes hyperlipidemia and hypothyroidism. She has not been monitoring her blood glucose levels. Patient has been physically active going to gym 3 times a week. She is going to [facility] for 1 month in September and then [place] until the end of December. [facility] Medical History Weight loss Anemia Pancreatic mass Skin growth Mammogram normal Osteopenia Hypothyroidism Hyperlipidemia Diabetes Diabetic eye exam FH: celiac disease Surgical History History of plastic surgery History of colonoscopy Family History Father Pancreatic cancer Mother Celiac disease COPD (chronic obstructive pulmonary disease) Brother No problems noted. Brother Celiac disease Social History Housing: House Patient Tobacco Use Status: Former Tobacco user e-Cigarette/Vaping Use: Never Used Second Hand Smoke Exposure: No service: No Current occupational status: retired Cognitive needs: No Hearing needs: No Vision needs: No Questionnaire PHQ-9 Over the last 2 weeks, how often have you been bothered by any of the following problems? 1. Little interest or pleasure in doing things: not at all 2. Feeling down, depressed, or hopeless: not at all 3. Trouble falling or staying asleep, or sleeping too much: not at all 4. Feeling tired or having little energy: not at all 5. Poor appetite or overeating: not at all 6. Feeling bad about yourself - or that you are a failure or have let yourself or your family down: not at all 7. Trouble concentrating on things, such as reading the newspaper or watching television: not at all 8. Moving or speaking so slowly that other people could have noticed. Or the opposite - being so fidgety or restless that you have been moving around a lot more than usual: not at all 9. Thoughts that you would be better off or of hurting yourself in some way: not at all Total score: 0 Depression Screening Interpretation: Negative Depression Screening Done: Yes Source: Developed by Drs. Keith aTn, Blanca Coleman, David Coleman and colleagues, with an educational tray from [employer]. Thrive Questionnaire Date Thrive assessed: 11/22/24 ESA-7 AMB Questionnaire ESA-7 Date ESA - 7 assessed: 11/25/24 Source: Developed by Drs. Keith Tan, Blanca Coleman, David Coleman and colleagues, with an educational tray from [employer]. Review of Systems Const All systems reviewed & are unremarkable except as noted in HPI and below ENT Reports no additional complaints Card Reports no additional complaints Resp Reports no additional complaints GI Reports no additional complaints Reports no additional complaints Physical exam (Primary Care) Vital Signs: Last Vital Signs Temp 97.9 F 08/16/25 10:01 Pulse 63 08/16/25 10:01 Resp 16 08/16/25 10:01 BP 130/66 08/16/25 10:01 Pulse Ox 97 08/16/25 10:01 Oxygen Delivery Method Room Air 08/16/25 10:01 BMI result Body Mass Index 19.6 Tobacco/Smoking Status: Tobacco use Status Tobacco use date assessed 08/16/25 08/16/25 10:07 Patient Tobacco Use Status Former Tobacco user 08/16/25 09:57 e-Cigarette/Vaping Use Never Used 08/16/25 09:57 PHQ-9: PHQ-9 Score PHQ-9: Total score 0 08/16/25 10:08 Depression Screening Interpretation: Negative Thrive Assessment: Date of Thrive Assessment Date Thrive assessed 11/22/24 08/16/25 09:57 Const General: no acute distress HENMT Face and sinus: Yes normal facial exam Eyes General: appearance normal, both eyes and all related structures Resp Effort & Inspection: normal respiratory effort Auscultation: clear to auscultation bilaterally Cardio Rhythm: regular rhythm Heart sounds: S1 normal heart sound present and S2 normal heart sound present GI Inspection: Yes normal to inspection Palpation (GI): Soft to palpation Percussion: Yes normal to percussion Auscultation: normal bowel sounds Coding Level of Care Code Est Pt Level 4 (65852) Diagnoses Hypothyroidism E03.9 Diabetes E11.9 Hyperlipidemia E78.5 Assessment & Plan Assessment & Plan (1) Hypothyroidism: Code(s): E03.9 - Hypothyroidism, unspecified Category: Medical Plan: TSH level is elevated. Patient has not been taking levothyroxine on empty stomach in occasionally forgetting. She was advised to use a pill box to improve compliance and take levothyroxine in the morning on an empty stomach. She will have TSH rechecked in 6 weeks (2) Diabetes: Comment: A1C goal less than 7.5 Code(s): E11.9 - Type 2 diabetes mellitus without complications Category: Medical Plan: A1c is 7.5. ADA diet increase exercise discussed with the patient. Metformin will be changed from 500 mg to metformin ER 750 mg. Patient will follow-up in 5 months with a fasting labs before (3) Hyperlipidemia: Code(s): E78.5 - Hyperlipidemia, unspecified Category: Medical Plan: Continue statin Orders: Orders Triiodothyronine T3 Free Today E03.9 - Hypothyroidism, unspecified Hemoglobin A1c 5 Months E03.9 - Hypothyroidism, unspecified, E11.9 - Type 2 diabetes mellitus without complications, E78.5 - Hyperlipidemia, unspecified Lipid Panel 5 Months E03.9 - Hypothyroidism, unspecified, E11.9 - Type 2 diabetes mellitus without complications, E78.5 - Hyperlipidemia, unspecified Complete Blood Count Auto Diff 5 Months E03.9 - Hypothyroidism, unspecified, E11.9 - Type 2 diabetes mellitus without complications, E78.5 - Hyperlipidemia, unspecified Microalbumin, Random (w Creat) 5 Months E03.9 - Hypothyroidism, unspecified, E11.9 - Type 2 diabetes mellitus without complications, E78.5 - Hyperlipidemia, unspecified TSH reflex Free T4 5 Months E03.9 - Hypothyroidism, unspecified, E11.9 - Type 2 diabetes mellitus without complications, E78.5 - Hyperlipidemia, unspecified TSH reflex Free T4 6 Weeks E03.9 - Hypothyroidism, unspecified Comprehensive [place]. Panel Fast 5 Months E03.9 - Hypothyroidism, unspecified, E11.9 - Type 2 diabetes mellitus without complications, E78.5 - Hyperlipidemia, unspecified Medications: New metformin ER 750 mg PO DAILY 90 tabs 3RF Discontinued metformin Discontinued Reason: Doctor's Order 500 mg PO DAILY 90 tabs 3RF
[2025-08-16 10:01] VITALS: BP 130/66; PULSE 63; RESP 16; TEMP 36.6; O2SAT 97; BMI 19.6
--- OUTSIDE RECORDS SUMMARY | 2025-08-16 10:49 | XMS_ITS | Clinical Summary ---
Author Organization [facility] Address [address] [place] [address] Phone Care Team Providers Care Ampoule Inspector Name Role Phone Claudia Earl MD Primary Care Provider [phone] Allergies No known active allergies Medications atorvastatin [...] file Insurance MEDICARE PART A & B [facility] MEDEX SUPPLEMENT MEDICARE PART A & B [employer] MEDEX SUPPLEMENT MEDICARE PART A & B [employer] MEDEX SUPPLEMENT MEDICARE PART A & B [employer] MEDEX SUPPLEMENT MEDICARE PART A & B [employer] MEDEX SUPPLEMENT MEDICARE PART A & B [employer] MEDEX SUPPLEMENT MEDICARE PART A & B [employer] MEDEX SUPPLEMENT MEDICARE PART A & B [employer] MEDEX SUPPLEMENT MEDICARE PART A & B [employer] MEDEX SUPPLEMENT Care Teams Ampoule Inspector Relationship Specialty Start Date End Date Claudia Earl MD [address] [place] [address] PCP - General Internal Medicine 05/07/22 Additional Source Comments The information contained in this document represents components of the legal health record. It is not the complete legal health record.[facility]
== END 2025-08-16 10:33 | disposition home or self-care (01) ==
LOC: HO.HMCC 09:36
PROVIDERS: PCP Internal Medicine; Visit Provider Internal Medicine
DX: E03.9 Hypothyroidism, unspecified (principal); E11.9 Type 2 diabetes mellitus without complications; E78.5 Hyperlipidemia, unspecified

== ENCOUNTER → 2025-08-16 09:36 | Outpatient (BNVA) | payer MEDICARE, SELFPAY | PROVIDERS: PCP Internal Medicine; Visit Provider Internal Medicine | DX: E03.9 Hypothyroidism, unspecified (principal); E11.9 Type 2 diabetes mellitus without complications; E78.5 Hyperlipidemia, unspecified; Z87.891 Personal history of nicotine dependence | CPT/HCPCS: 99212 ==